=== PATIENT | male | born 1960 | race Caucasian/White ===

== ENCOUNTER 2017-09-09 08:01 | Inpatient (IN) | payer BC ==
[2017-09-07 14:32] VITALS: BMI 38.7
[2017-09-09] MEDS ORDERED: BUPIVACAINE HCL/PF 0.5% (5MG/ML) 10 ML VIAL ONE (10:41)
--- NOTE | 2017-09-09 10:44 | HP ---
Admitting History and Physical - Admission Chief Complaint: Morbid obesity History of Present Illness: 56 male presents for robotic vertical sleeve gastrectomy, possible liver biopsy , upper endoscopy History Source: Patient Limitations to Obtaining History: No Limitations - Past Medical History JACK WINDER: Yes: Syncope Cardiovascular: Yes: CAD, HTN, Hyperlipdemia, Other (Ventricular premature beats ) - Past Surgical History Past Surgical History: Yes: Tonsillectomy Additional Past Surgical History: Bilateral heel spurs - Smoking History Smoking history: Never smoked - Alcohol/Substance Use Hx Alcohol Use: Yes (SOCIALLY) Home Medications - Allergies Allergies/Adverse Reactions: Allergies Allergy/AdvReac Type Severity Reaction Status Date / Time Penicillins Allergy Severe Verified 09/07/17 14:34 - Home Medications Home Medications: Ambulatory Orders Atorvastatin Ca [Lipitor] 10 mg PO DAILY 09/07/17 Clonazepam 0.5 mg PO TID 09/07/17 Hydrocodone/Acetaminophen [Vicodin Es 7.5-300 mg Tablet] 1 tab PO QID 09/07/17 Meloxicam 15 mg PO DAILY 09/07/17 Methylprednisolone [Medrol Dose Jay] 1 tab PO 5XD 09/07/17 Mometasone Furoate 17 gm NS DAILY 09/07/17 Sertraline HCl [Zoloft] 200 mg PO DAILY 09/07/17 Trazodone HCl 350 mg PO HS 09/07/17 Cholecalciferol (Vitamin D3) [Vitamin D3] 5,000 unit PO DAILY 09/09/17 Chromium Picolinate 1,000 mcg PO DAILY 09/09/17 Cyclobenzaprine HCl [Flexeril 10 mg] 10 mg PO HS 09/09/17 Docusate Sodium [Colace -] 300 mg PO HS 09/09/17 Fexofenadine HCl [Wendy Allergy] 60 mg PO DAILY 09/09/17 Ginkgo Biloba 500 mg PO BID 09/09/17 Magnesium Oxide [Magnesium] 1,000 mg PO DAILY 09/09/17 Metoprolol Succinate 25 mg PO HS 09/09/17 Multivitamin,Ther and Minerals [Vitamin and Minerals] 1 each PO DAILY 09/09/17 Ubidecarenone [Co Q10] 400 mg PO DAILY 09/09/17 Family Disease History - Family Disease History Family History: Denies Review of Systems - Review of Systems Constitutional: denies: Chills, Fever HENT: reports: No Symptoms Neck: reports: No Symptoms Cardiovascular: denies: Chest Pain Respiratory: denies: Cough Gastrointestinal: denies: Abdominal Pain Neurological: denies: Change in LOC Pain Intensity: 0 Physical Examination Vital Signs: Vital Signs Temperature 98.6 F 09/09/17 08:40 Pulse Rate 86 09/09/17 08:40 Respiratory Rate 18 09/09/17 08:40 Blood Pressure 145/69 09/09/17 08:40 O2 Sat by Pulse Oximetry (%) 94 L 09/09/17 08:40 Constitutional: Yes: Calm HENT: Yes: WNL Neck: Yes: Supple Cardiovascular: Yes: WNL Respiratory: Yes: Regular Gastrointestinal: Yes: Soft, Abdomen, Obese. No: Tenderness Neurological: Yes: Alert, Oriented Problem List - Problems (1) Morbid obesity due to excess calories Code(s): E66.01 - MORBID (SEVERE) OBESITY DUE TO EXCESS CALORIES Assessment/Plan Robotic vertical sleeve gastrectomy, possible liver biopsy, upper endoscopy
[2017-09-09] MEDS ORDERED: MIDAZOLAM HCL 2 MG/2 ML SINGLE DOSE VIAL ONE (10:59)
[2017-09-09] MEDS ORDERED: SUCCINYLCHOLINE CHLORIDE 200 MG/10 ML VIAL ONE (11:26)
[2017-09-09] MEDS ORDERED: PROPOFOL 20 ML ONE ×2 (11:26→11:27)
[2017-09-09] MEDS ORDERED: fentaNYL CITRATE 250 MCG/5 ML VIAL ONE (11:27)
[2017-09-09] MEDS ORDERED: ROCURONIUM BROMIDE 50 MG/5 ML VIAL ONE (11:33)
[2017-09-09] MEDS ORDERED: CLINDAMYCIN PHOSPHATE 900 MG/6 ML VIAL IVPB ONE (11:52)
[2017-09-09] MEDS ORDERED: DEXAMETHASONE SOD PHOSPHATE 4 MG/1 ML VIAL ONE (13:29)
[2017-09-09] MEDS ORDERED: NEOSTIGMINE METHYLSULFATE 0.5 MG/ML - 10 ML MDV ONE (13:38)
[2017-09-09] MEDS ORDERED: GLYCOPYRROLATE 0.2 MG/1 ML VIAL ONE (13:39)
[2017-09-09] MEDS ORDERED: HYDROmorphone HCL CARPU-JECT 1 MG/1 ML DISP.SYRIN IVPB PRN (14:14)
[2017-09-09] MEDS ORDERED: ONDANSETRON 4 MG/2 ML VIAL IVPUSH SCH (14:15)
--- NOTE | 2017-09-09 14:17 | OP ---
Operative Note - Note: Operative Date: 09/09/17 Pre-Operative Diagnosis: Morbid obesity Operation: Robotic vertical sleeve gastrectomy, wedge liver biopsy, upper endoscopy Post-Operative Diagnosis: Other (Morbid obesity, hepatomegaly) Surgeon: Micheal Hodges Fire Inspector: Gino Stewart Anesthesia: General Specimens Removed: Greater curvature of stomach. Left lobe wedge liver biopsy Estimated Blood Loss (mls): 30 Drains & Tubes with Location: 36 Fr Bougie Operative Report Dictated: Yes
[2017-09-09] MEDS: METOCLOPRAMIDE HCL INJECTION 10 MG/2 ML VIAL IVPUSH SCH ×2 (14:25→20:18)
[2017-09-09] MEDS: ACETAMINOPHEN 1000 MG/100 ML VIAL (NON FORMULARY) IVPB SCH ×2 (14:30→20:18)
[2017-09-09] MEDS: HYDROmorphone HCL CARPU-JECT 2 MG/1 ML DISP.SYRIN IVPUSH PRN ×2 (14:30→14:40)
[2017-09-09] MEDS ORDERED: ONDANSETRON 4 MG/2 ML VIAL IVPUSH PRN (14:35)
[2017-09-09] MEDS ORDERED: oxyCODONE HCL 5 MG TABLET PO PRN (14:35)
[2017-09-09] MEDS ORDERED: PROMETHAZINE HCL 25 MG/1 ML VIAL IVPB PRN (14:35)
[2017-09-09] MEDS ORDERED: HYDROmorphone HCL CARPU-JECT 2 MG/1 ML DISP.SYRIN ONE (14:40)
[2017-09-09] MEDS ORDERED: LACTATED RINGERS SOLUTION 1,000 ML IV SCH (14:45)
--- NOTE | 2017-09-09 14:53 | SPEC ---
DATE OF OPERATION: 09/09/2017 PREOPERATIVE DIAGNOSES: 1. Morbid obesity. 2. Body mass index of 38.7. 3. Coronary artery disease. 4. Depression. 5. Hypercholesterolemia. POSTOPERATIVE DIAGNOSES: 1. Morbid obesity. 2. Body mass index of 38.7. 3. Coronary artery disease. 4. Depression. 5. Hypercholesterolemia. 6. Hepatomegaly. PROCEDURES PERFORMED: 1. Robotic vertical sleeve gastrectomy. 2. Robotic wedge liver biopsy. 3. Upper endoscopy. SURGEON: Shannon Hodges M.D. CATCHER HELPER: Gino Stewart M.D. SPECIMENS: 1. Greater curvature of the stomach. 2. Wedge liver biopsy of the left lobe of the liver. ESTIMATED BLOOD LOSS: 30 mL. DRAINS: None. ANESTHESIA: GET. BOUGIE: 36 Divehi. REASON FOR THE PROCEDURE: This 56-year-old gentleman presented to the office for weight loss options. After describing the different options, he decided to proceed with a robotic vertical sleeve gastrectomy, possible liver biopsy and upper endoscopy. RISKS AND BENEFITS: The patient was seen by the respective subspecialities and cleared for surgery. The risks and benefits of the procedure were explained. These included bleeding, infection, hernia, NE, DVT, PE, injury to surrounding structures including the liver, colon, bowel, spleen, esophagus, vessel injury, nerve injury, weight regain, gastric leak, staple line leak, sleeve leak, obstruction, vitamin deficiency, hair loss, and as some of the possible complications. The patient understood and signed informed consent. DESCRIPTION OF PROCEDURE: The patient was placed supine on the operating room table. The patient underwent general endotracheal intubation. A Bautista catheter was inserted by the nursing staff. The arms were brought out at 90 degrees and secured. A foot board was placed and the legs were secured laterally with padding. The abdomen was prepped and draped in the usual sterile fashion. A time-out was performed. An incision was made superior and to the left of the umbilicus. A Veress needle was inserted. Pneumoperitoneum was established. Subsequently the Veress needle was removed. An 8-mm robotic trocar was placed under direct visualization with the laparoscope. Inspection of the abdominal cavity was performed. An 8-mm trocar was then placed in the left abdominal wall approximately 6 to 7 cm to the left of the initial trocar. An 8-mm robotic trocar was then placed in the left abdominal wall approximately 6 to 7 cm to the left of the initial trocar. A 12-mm robotic trocar was then placed in the right abdominal wall approximately 6 to 7 cm to the right of the initial trocar and an 8-mm robotic trocar placed approximately 6 to 7 cm lateral to the 12-mm trocar. A stab wound was made in the subxiphoid area and a Becky clamp inserted and removed to dilate the tract. A Derrick liver retractor was inserted. The post was secured at the bedside by the nursing staff. The patient was placed in steep reverse Trendelenburg position and the Derrick liver retractor was used to secure the liver towards the anterior abdominal wall. The robot was brought over the field and docked. Dissection was performed at the console. The pylorus was identified and 6 cm proximal to it the lesser sac was entered using the vessel sealer. From this point cephalad all lateral attachments to the greater curvature of the stomach including the short gastric vessels were ligated using the vessel sealer towards the gastrosplenic and gastrophrenic ligaments. Once this was done in its entirety, all tubes within the nasal or oropharyngeal cavity including a temperature probe was confirmed to be removed by Anesthesia. The bougie was then inserted by Anesthesia. Transection of the stomach was then begun staying adjacent to the bougie, but away from the angularis. Transection of the stomach was performed near the portion of the stomach where the lesser sac was entered. Two robotic green hiram were used at this location. Robotic blue hiram were then used for the remainder of the transection until the greater curvature of the stomach was fully transected. Again this was done staying close to the bougie. Care was taken to stay away from the angle of His cephalad. The staple line was then inspected. Hemostasis was identified. A leak test was then performed. The stomach was clamped distally to the staple line. Irrigation solution was placed in the left upper quadrant and air insufflated by Anesthesia into the sleeve. No leaks were identified and no obstruction was identified. This was done throughout the staple line. At this point, the irrigation solution was suctioned and again hemostasis noted. A wedge liver biopsy was then performed. A portion of the left lobe of the liver was identified and an edge of it grasped. Using electrocautery a wedge of this portion of the liver was excised. The specimen was removed from the abdominal cavity and sent off the field. Hemostasis of the biopsy site as attained using electrocautery. The robotic instruments were then removed. The robot was undocked from the operative field. The 12-mm robotic trocar was removed and the greater curvature specimen removed from this site using a sponge stick hyde. The specimen was inspected and the Veress needle inserted. The specimen insufflated adequately and no leak was identified. The staple line was noted to be straight and intact. A Rolly-Marlene device was then used to close the fascia with a 0 Vicryl suture at this site. The liver retractor was removed under direct visualization. Pneumoperitoneum was desufflated and the fascial suture was secured. Hemostasis was noted at all incision sites and Marcaine was injected at all incision sites. All incision sites were closed using 4-0 Biosyn. Sterile dressings were applied. At the end of the case, an upper endoscopy was performed in order to further evaluate the staple line. The endoscope was inserted into the patient's esophagus. The GE junction, stomach, gastric pouch and entirety of the staple line were inspected. Hemostasis was noted, and no leak or obstruction was noted. The patient tolerated the procedure well and was transferred to the recovery room in stable condition with a Bautista catheter intact. The patient was transferred to telemetry for further monitoring. HSANNON HODGES M.D. [id number]
[2017-09-09] MEDS: SODIUM CHLORIDE 1,000 ML IV SCH ×2 (15:00→22:19)
[2017-09-09 15:11] LABS: HEMATOCRIT 45.4 % (35.4-49); HEMOGLOBIN 14.9 GM/dL (11.7-16.9); MCH 29.5 pg (25.7-33.7); MCHC 32.7 g/dl (32.0-35.9); MEAN CELL VOLUME 90.1 fl (80-96); MEAN PLT VOLUME 8.2 fl (7.5-11.1); PLATELET COUNT 166 K/MM3 (134-434); RBC 5.05 M/mm3 (4.00-5.60); RDW 14.2 % (11.9-15.9); WHITE BLOOD COUNT 10.1 K/mm3 (4.0-10.0)
[2017-09-09 15:28] LABS: ALK PHOS 79 U/L (45-117); ANION GAP 5 (8-16); BILIRUBIN,TOTAL 0.3 mg/dL (0.2-1.0); BLOOD UREA NITROGEN 20 mg/dL (7-18); CALCIUM 8.5 mg/dL (8.5-10.1); CHLORIDE 106 mmol/L (98-107); CO2 29 mmol/L (21-32); GLUCOSE,RANDOM 117 mg/dL (74-106); POTASSIUM 4.3 mmol/L (3.5-5.1); SGOT/AST 59 U/L (15-37); SGPT/ALT 77 U/L (12-78); SODIUM 140 mmol/L (136-145); TOT PROT 7.2 g/dl (6.4-8.2)
[2017-09-09] MEDS: HYDROmorphone HCL CARPU-JECT 2 MG/1 ML DISP.SYRIN IVPB PRN (17:41)
[2017-09-09] MEDS ORDERED: TRAZODONE HCL 350 MG PO SCH (22:00)
[2017-09-09] MEDS ORDERED: traZODone HCL 150 MG TABLET PO SCH (22:00)
[2017-09-09] MEDS ORDERED: traZODone HCL 50 MG TABLET (FP) PO SCH (22:00)
[2017-09-09] MEDS ORDERED: FAMOTIDINE 20 MG/50 ML IVPB 20 MG/50 ML MG IVPB SCH (22:00)
[2017-09-09] MEDS ORDERED: traZODone HCL 50 MG TABLET (FP) ONE (22:15)
[2017-09-09] MEDS: ENOXAPARIN NA (PORCINE) 40 MG/0.4 ML DISP.SYRIN SQ SCH (22:16)
[2017-09-09] MEDS: traZODone HCL 100 MG TABLET (FP) PO SCH ×2 (22:17→22:19)
[2017-09-09] MEDS: FAMOTIDINE IV 20 MG/12 ML VIAL IVPB SCH (22:38)
[2017-09-10] MEDS: METOCLOPRAMIDE HCL INJECTION 10 MG/2 ML VIAL IVPUSH SCH ×4 (01:45→20:47)
[2017-09-10] MEDS: ACETAMINOPHEN 1000 MG/100 ML VIAL (NON FORMULARY) IVPB SCH ×2 (01:49→08:46)
[2017-09-10] MEDS: HYDROmorphone HCL CARPU-JECT 2 MG/1 ML DISP.SYRIN IVPB PRN (07:19)
[2017-09-10 07:20] LABS: HEMATOCRIT 41.9 % (35.4-49); HEMOGLOBIN 13.6 GM/dL (11.7-16.9); MCH 29.5 pg (25.7-33.7); MCHC 32.5 g/dl (32.0-35.9); MEAN CELL VOLUME 90.6 fl (80-96); MEAN PLT VOLUME 8.2 fl (7.5-11.1); PLATELET COUNT 163 K/MM3 (134-434); RBC 4.62 M/mm3 (4.00-5.60); WHITE BLOOD COUNT 8.7 K/mm3 (4.0-10.0)
[2017-09-10 08:07] LABS: ALBUMIN 3.4 g/dl (3.4-5.0); ANION GAP 8 (8-16); BILIRUBIN,TOTAL 0.3 mg/dL (0.2-1.0); BLOOD UREA NITROGEN 13 mg/dL (7-18); CALCIUM 8.3 mg/dL (8.5-10.1); CHLORIDE 107 mmol/L (98-107); CO2 28 mmol/L (21-32); CREATININE 0.7 mg/dL (0.7-1.3); GLUCOSE,RANDOM 83 mg/dL (74-106); POTASSIUM 4.1 mmol/L (3.5-5.1); SGOT/AST 96 U/L (15-37); SGPT/ALT 116 U/L (12-78); SODIUM 143 mmol/L (136-145); TOT PROT 6.2 g/dl (6.4-8.2)
[2017-09-10 08:08] LABS: ALK PHOS 48 U/L (45-117)
[2017-09-10] MEDS: FAMOTIDINE IV 20 MG/12 ML VIAL IVPB SCH (10:26)
[2017-09-10] MEDS: ENOXAPARIN NA (PORCINE) 40 MG/0.4 ML DISP.SYRIN SQ SCH ×2 (10:29→21:18)
[2017-09-10] MEDS: METOPROLOL SUCCINATE 25 MG TAB.SR.24H (FP) PO SCH (10:30)
[2017-09-10] MEDS ORDERED: SODIUM CHLORIDE 1,000 ML IV SCH (11:15)
--- NOTE | 2017-09-10 12:25 | PN ---
Progress Note (short form) - Note Progress Note: POD 1 pain controlled No nausea Vital Signs Period Temp Pulse Resp BP Sys/Stout Pulse Ox Last 24 Hr 98. F-98.9 F 53-100 16-20 133-155/79-96 94-98 Abd soft CBC,CMP WBC 8.7 K/mm3 (4.0-10.0) 09/10/17 06:20 RBC 4.62 M/mm3 (4.00-5.60) 09/10/17 06:20 Hgb 13.6 GM/dL (11.7-16.9) 09/10/17 06:20 Hct 41.9 % (35.4-49) 09/10/17 06:20 MCV 90.6 fl (80-96) 09/10/17 06:20 MCH 29.5 pg (25.7-33.7) 09/10/17 06:20 MCHC 32.5 g/dl (32.0-35.9) 09/10/17 06:20 RDW 14.0 % (11.9-15.9) 09/10/17 06:20 Plt Count 163 K/MM3 (134-434) 09/10/17 06:20 MPV 8.2 fl (7.5-11.1) 09/10/17 06:20 Sodium 143 mmol/L (136-145) 09/10/17 06:20 Potassium 4.1 mmol/L (3.5-5.1) 09/10/17 06:20 Chloride 107 mmol/L (98-107) 09/10/17 06:20 Carbon Dioxide 28 mmol/L (21-32) 09/10/17 06:20 Anion Gap 8 (8-16) 09/10/17 06:20 BUN 13 mg/dL (7-18) D 09/10/17 06:20 Creatinine 0.7 mg/dL (0.7-1.3) D 09/10/17 06:20 Creat Clearance w eGFR > 60 (>60) 09/10/17 06:20 Random Glucose 83 mg/dL (74-106) D 09/10/17 06:20 Calcium 8.3 mg/dL (8.5-10.1) L 09/10/17 06:20 Total Bilirubin 0.3 mg/dL (0.2-1.0) 09/10/17 06:20 AST 96 U/L (15-37) H D 09/10/17 06:20 ALT 116 U/L (12-78) H D 09/10/17 06:20 Alkaline Phosphatase 48 U/L (45-117) D 09/10/17 06:20 Total Protein 6.2 g/dl (6.4-8.2) L 09/10/17 06:20 Albumin 3.4 g/dl (3.4-5.0) 09/10/17 06:20 UGI; no leak/obstruction Clears Home medicatoin Ambulate Problem List - Problems (1) Morbid obesity due to excess calories Code(s): E66.01 - MORBID (SEVERE) OBESITY DUE TO EXCESS CALORIES
[2017-09-10] MEDS ORDERED: FAMOTIDINE IV 20 MG/12 ML VIAL IVPUSH SCH (12:52)
[2017-09-10] MEDS: CHOLECALCIFEROL (VITAMIN D3) 1,000 UNIT TABLET (FP) PO SCH (13:40)
[2017-09-10] MEDS: SERTRALINE HCL 50 MG TABLET (FP) PO SCH (13:40)
[2017-09-10] MEDS: clonazePAM 0.5 MG TABLET PO SCH ×2 (13:40→21:17)
[2017-09-10] MEDS: oxyCODONE HCL 5 MG TABLET PO PRN (14:12)
[2017-09-10] MEDS: ACETAMINOPHEN 325 MG TABLET (FP) PO PRN (14:19)
[2017-09-10] MEDS: LORATADINE 10 MG TABLET PO SCH (18:30)
[2017-09-10] MEDS ORDERED: traZODone HCL 50 MG TABLET (FP) ONE (21:09)
[2017-09-10] MEDS: traZODone HCL 100 MG TABLET (FP) PO SCH (21:16)
[2017-09-10] MEDS: FLUTICASONE PROP 0.05% 16 GM NASAL SPRAY NS SCH (21:27)
[2017-09-10] MEDS ORDERED: CYCLOBENZAPRINE HCL 10 MG TABLET (FP) PO SCH (22:00)
[2017-09-10] MEDS ORDERED: DOCUSATE SODIUM 100 MG CAPSULE (FP) PO SCH (22:00)
[2017-09-10] MEDS ORDERED: ATORVASTATIN CA 10 MG TABLET (FP) PO SCH (22:00)
[2017-09-11] MEDS: METOCLOPRAMIDE HCL INJECTION 10 MG/2 ML VIAL IVPUSH SCH ×2 (01:26→08:29)
[2017-09-11] MEDS: clonazePAM 0.5 MG TABLET PO SCH (05:23)
[2017-09-11 06:20] VITALS: PULSE 92
[2017-09-11] MEDS: oxyCODONE HCL 5 MG TABLET PO PRN ×2 (08:39→13:16)
[2017-09-11] MEDS: ACETAMINOPHEN 325 MG TABLET (FP) PO PRN ×2 (08:39→13:16)
--- NOTE | 2017-09-11 12:40 | DS ---
Physical Examination Vital Signs: Vital Signs Temperature 99.0 F 09/11/17 06:00 Pulse Rate 92 H 09/11/17 06:00 Respiratory Rate 20 09/11/17 06:00 Blood Pressure 142/87 09/11/17 06:00 O2 Sat by Pulse Oximetry (%) 96 09/10/17 21:00 Labs: CBC, BMP 09/10/17 06:20 09/10/17 06:20 Discharge Summary Reason For Visit: MORBID (SEVERE) OBESITY DUE TO EXCESS CALORIES Current Active Problems BMI 38.0-38.9,adult (Acute) CAD (coronary artery disease) (Acute) Hepatomegaly (Acute) Morbid obesity due to excess calories (Acute) Condition: Stable - Instructions Diet, Activity, Other Instructions: [address] [place] [address] Micheal Hodges M.D. [address] [place] [address], [address] [facility] [address] [facility] [place] [address] Robotic, Bariatric and General Surgery Postoperative Instructions for Bariatric Surgery Activity: Resume normal everyday activity as tolerated. You may walk and climb stairs without any limitation. We encourage you to walk as often as you can Do not lift anything more than 10 pounds for 8 weeks. At that time, you can return to full activity, including the gym, without limitation. Do not drive a motor vehicle while taking prescribes narcotic pain medication. Wound Care: If you have a bandage in place, leave it on for 3 days. At that time you may remove the outer bandage. If there are strips of tape on the skin after removing the outer bandage, leave them in place. They will fall off by themselves. Do not remove them. If there is clear glue on the skin after removing the outer bandage, leave it in place. Do not pick at it or peel it off. You may shower after taking the outer bandage off, 3 days after your surgery. If incisions become red, warm or open, please call the office. Diet: Continue a sugar-free, non-carbonated Clear liquid diet three times a day for the first week-Stage I diet. In addition, you should drink 8 ounces of water every hour. When drinking, sips should be slow and steady, not large and quick. After the first week, call the office to be advanced to the next dietary stage. Do not advance stages until instructed. Your diet will be advanced over the phone each week. Medications/Pain Management: You may resume previous medications unless told otherwise. The pills may be swallowed whole or broken if scored. You may take the prescribed narcotic pain medication as needed. If the narcotic medication is not needed for pain control, you may take Tylenol. Avoid all other pain medications including Advil, Ibuprofen, Motrin, Aspirin, Naprosyn, Aleve, Celebrex. You will receive Pepcid. Please take this twice a day as prescribed. Dizziness,Headaches/Gas Pain: Make sure you are getting enough fluids daily. Patients on diuretics or water pills may need medication adjusted. Some fluids such as broth or Gatorade may help. Gas pains are common in the first few weeks after surgery. At times they can be worse than surgical pain. Walking can help. You can also use Mylanta, Maalox, or Gas-X. Vomiting/Nausea: This may occur if you eat too fast, don't chew, or eat too much. Go back to fluids. If the vomiting or nausea persists, call the office. Constipation/Diarrhea: You may experience a change in bowel habits. Many things affect this, including a decrease in food intake, not enough fluid and taking pain medication. Some people experience diarrhea after the barium swallow in x-ray. If either persist, call the office. Follow up: Call the office at [phone] for an appointment 2 weeks after your surgical procedure. Disposition: [facility]/HOME HEALTH CARE - Home Medications Comprehensive Discharge Medication List: Ambulatory Orders Atorvastatin Ca [Lipitor] 10 mg PO DAILY 09/07/17 Clonazepam 0.5 mg PO TID 09/07/17 Hydrocodone/Acetaminophen [Vicodin Es 7.5-300 mg Tablet] 1 tab PO QID 09/07/17 Meloxicam 15 mg PO DAILY 09/07/17 Methylprednisolone [Medrol Dose Jay] 1 tab PO 5XD 09/07/17 Mometasone Furoate 17 gm NS DAILY 09/07/17 Sertraline HCl [Zoloft] 200 mg PO DAILY 09/07/17 Trazodone HCl 350 mg PO HS 09/07/17 Cholecalciferol (Vitamin D3) [Vitamin D3] 5,000 unit PO DAILY 09/09/17 Chromium Picolinate 1,000 mcg PO DAILY 09/09/17 Cyclobenzaprine HCl [Flexeril 10 mg] 10 mg PO HS 09/09/17 Docusate Sodium [Colace -] 100 mg PO TID #90 capsule 09/09/17 Docusate Sodium [Colace -] 300 mg PO HS 09/09/17 Famotidine [Pepcid] 20 mg PO BID #60 tablet 09/09/17 Fexofenadine HCl [Wendy Allergy] 60 mg PO DAILY 09/09/17 Ginkgo Biloba 500 mg PO BID 09/09/17 Magnesium Oxide [Magnesium] 1,000 mg PO DAILY 09/09/17 Metoprolol Succinate 25 mg PO HS 09/09/17 Multivitamin,Ther and Minerals [Vitamin and Minerals] 1 each PO DAILY 09/09/17 Ubidecarenone [Co Q10] 400 mg PO DAILY 09/09/17
--- NOTE | 2017-09-11 12:44 | PN ---
Progress Note (short form) - Note Progress Note: POD 2 Doing well Tolerating clears Vital Signs Period Temp Pulse Resp BP Sys/Stout Pulse Ox Last 24 Hr 98.0 F-99.0 F 75-93 18-20 136-157/84-90 96-96 Abd soft PT ordered Cane ordered to help with ambulation- patient requesting cane Home with [facility] for assistance with ambulation Problem List - Problems (1) Morbid obesity due to excess calories Code(s): E66.01 - MORBID (SEVERE) OBESITY DUE TO EXCESS CALORIES
[2017-09-11] MEDS: CHOLECALCIFEROL (VITAMIN D3) 1,000 UNIT TABLET (FP) PO SCH (13:12)
[2017-09-11] MEDS: SERTRALINE HCL 50 MG TABLET (FP) PO SCH (13:13)
[2017-09-11] MEDS: FLUTICASONE PROP 0.05% 16 GM NASAL SPRAY NS SCH (13:13)
[2017-09-11] MEDS: METOPROLOL SUCCINATE 25 MG TAB.SR.24H (FP) PO SCH (13:13)
[2017-09-11] MEDS: ENOXAPARIN NA (PORCINE) 40 MG/0.4 ML DISP.SYRIN SQ SCH (13:56)
[2017-09-11] MEDS: LORATADINE 10 MG TABLET PO SCH (13:56)
[2017-09-11 14:15] VITALS: BP 146/77; TEMP 98.7
--- NOTE | 2017-09-15 12:58 | PATH ---
Surgical Pathology Report Patient Name: ISAIAH ABREU [facility]. Rec. #: [id number] /Age/Gender: 1960 (Age: 56) / M Account: [id number] Location: 4 W TELEMETRY U Taken: 09/09/2017 Received: 09/10/2017 Reported: 09/15/2017 Physicians: Micheal Hodges M.D. Specimen(s) Received A: GREATER CURVATURE STOMACH B: LIVER BIOPSY Clinical History Morbid obesity Final Diagnosis A. Stomach, greater Curvature, robotic vertical SLEEVE gastrectomy: Portion of stomach with MILD chronic gastritis. Immunohistochemical STAIN FOR H. Pylori is negative. B. LIVER, BIOPSY: LIVER PARENCHYMA WITH MINIMAL STEATOSIS (<1%). NO INCREASE IN FIBROSIS OR IRON ON PERFORMED SPECIAL STAINS (IRON AND TRICHROME). Electronically Signed Etelvina Horne M.D. Gross Description A. Received in formalin, labeled "greater curvature of stomach," is a 114 gram, 19.0 x 3.3 x 3.0 cm. portion of stomach with a stapled margin of resection. The serosa is johansen-rabago with minimal attached fat. The mucosa is johansen-pink with normal folds. No mucosal masses are identified. Nursing Faculty sections are submitted in one cassette. B. Received in formalin labeled "liver biopsy," is a 3.2 x 1.4 x 1.0 cm johansen-brown, irregular portion of liver tissue. The specimen is sectioned and entirely submitted in 2 cassettes. 09/10/201709/10/2017
== END 2017-09-11 01:50 | disposition home health service (06) | DRG 621 ==
LOC: JSAMEDAYSX 08:01 → EDSTATUS 11:00 → J4W 16:55
PROVIDERS: ADMIT Surgery; ATTEND Surgery
PROC: 0DB64Z3 Excision of Stomach, Percutaneous Endoscopic Approach, Vertical (ICD-10-PCS; principal; 2017-09-09 10:00)
PROC: 0FB24ZX Excision of Left Lobe Liver, Percutaneous Endoscopic Approach, Diagnostic (ICD-10-PCS; 2017-09-09 10:00)
PROC: 8E0W8CZ Robotic Assisted Procedure of Trunk Region, Via Natural or Artificial Opening Endoscopic (ICD-10-PCS; 2017-09-09 10:00)
DX: E66.01 Morbid (severe) obesity due to excess calories (principal); Z68.38 Body mass index [BMI] 38.0-38.9, adult; I25.10 Atherosclerotic heart disease of native coronary artery without angina pectoris; F32.9 Major depressive disorder, single episode, unspecified; E78.5 Hyperlipidemia, unspecified; R16.0 Hepatomegaly, not elsewhere classified; I10 Essential (primary) hypertension; K29.50 Unspecified chronic gastritis without bleeding; K76.0 Fatty (change of) liver, not elsewhere classified
CPT/HCPCS: 36415; 74241-TC; 80053; 85027; 86850; 86900; 86901; 88307-TC; 94010; 94760; 97161-GP

== ENCOUNTER 2018-05-18 10:54 | Inpatient (IN) | payer BC ==
[2018-04-28 13:16] VITALS: BMI 29.0
[~2018-05-18 10:54] MED LIST: CEFAZOLIN 2 GM in DEXTROSE 5%-WATER - 50 ML IVPB ONE; MOMETASONE FUROATE NS SCH; PATIENT'S OWN MEDICATION (NON-FORMULARY) (Hydrocodone/Acetaminophen [Vicodin Es 7.5-300 Mg PO PRN; PATIENT'S OWN MEDICATION (NON-FORMULARY) (Sertraline Hcl [Zoloft] 200 MG) PO SCH; TRANEXAMIC ACID 1000 MG/10 ML VIAL IVPUSH ONE; VANCOMYCIN 1,000 MG in DEXTROSE 5%-WATER - 250 ML IVPB ONE
[2018-05-18] MEDS ORDERED: CELECOXIB 200 MG CAPSULE ONE (11:17)
[2018-05-18] MEDS ORDERED: oxyCODONE HCL 10 MG SUSTAINED ACTING TABLET ONE (11:17)
[2018-05-18] MEDS: CELECOXIB 200 MG CAPSULE PO ONE (13:14)
[2018-05-18] MEDS: oxyCODONE HCL 10 MG SUSTAINED ACTING TABLET PO ONE (13:14)
[2018-05-18] MEDS ORDERED: BENZOIN/ALOE VERA/STORAX/TOLU 58 ML BOTTLE ONE (14:42)
[2018-05-18] MEDS ORDERED: SODIUM CHLORIDE 0.9% P/F 10 ML VIAL IJ ONE (14:43)
[2018-05-18] MEDS ORDERED: BUPIVACAINE LIPOSOME/PF (EXPAREL) 266 MG/20 ML VIAL ONE (14:43)
[2018-05-18] MEDS ORDERED: MIDAZOLAM HCL 2 MG/2 ML SINGLE DOSE VIAL ONE ×3 (14:43→18:07)
[2018-05-18] MEDS ORDERED: BUPIVACAINE HCL/PF (5 MG/ML) 30 ML VIAL IJ ONE (14:43)
[2018-05-18] MEDS ORDERED: TRANEXAMIC ACID 1000 MG/10 ML VIAL ONE ×2 (17:08→18:29)
[2018-05-18] MEDS ORDERED: CLINDAMYCIN PHOSPHATE 600 MG/4 ML VIAL ONE (17:08)
[2018-05-18] MEDS ORDERED: oxyCODONE HCL 5 MG TABLET PO PRN (19:00)
[2018-05-18] MEDS ORDERED: ONDANSETRON 4 MG/2 ML VIAL IVPUSH PRN ×2 (19:04→20:03)
[2018-05-18] MEDS ORDERED: MAG HYDROX/AL HYDROX/SIMETH 30 ML UNIT-DOSE CUP PO PRN (19:04)
[2018-05-18] MEDS ORDERED: MAGNESIUM HYDROX 2400MG/30ML ORAL SUSPENSION 30 ML CUP PO PRN (19:04)
[2018-05-18] MEDS ORDERED: LACTATED RINGERS SOLUTION 1,000 ML IV SCH ×2 (19:15→20:15)
--- NOTE | 2018-05-18 19:25 | PN ---
Progress Note (short form) - Note Progress Note: S/P L TKA R TKA POD #0 - Pain control. -DVT PPx: -Chemical: ASA 81 mg po BID x 6 weeks -Mechanical: MICHAEL's, SCD's -Incentive Spirometry. -PT/OT/Rehab, OOB. -WBAT RLE. -f/u drain output -f/u am labs. -Care per medical hospitalist team. -Discharge planning: f/u [facility] [place] office video production specialist for appointment: -Will follow. Akhil Robles MD (Orthopaedic Surgery)
--- NOTE | 2018-05-18 19:34 | OP ---
Operative Note - Note: Operative Date: 05/18/18 Pre-Operative Diagnosis: Right knee OA Operation: right total knee arthroplasty Implants: [employer] PS 6 tibia, 9 poly insert, 5 femur, 27 patella Post-Operative Diagnosis: Same as Pre-op Surgeon: Akhil Robles Fagoting Machine Operator: Feliz Robles Anesthesiologist/SOLE BUFFER: Irma Wong Anesthesia: Spinal Specimens Removed: bone and soft tissue Estimated Blood Loss (mls): 150 Drains & Tubes with Location: deep Hemovac Drain x1 Fluid Volume Replaced (mls): 1,800 Operative Report Dictated: Yes
[2018-05-18] MEDS: ACETAMINOPHEN 325 MG TABLET (FP) PO SCH (20:25)
[2018-05-18] MEDS: ASPIRIN 81 MG CHEWABLE TABLETS PO SCH ×2 (20:30→21:22)
[2018-05-18] MEDS: oxyCODONE HCL 5 MG TABLET PO PRN ×2 (20:30→23:00)
--- NOTE | 2018-05-18 21:17 | OP ---
DATE OF OPERATION: 05/18/2018 SURGEON: Akhil Robles MD GEOSPATIAL INFORMATION SCIENTIST: Feliz Robles MD; TERESE Frausto PREOPERATIVE DIAGNOSES: Fixed valgus, fixed flexed valgus tricompartment osteoarthritis of knee. POSTOPERATIVE DIAGNOSIS: Fixed valgus, fixed flexed valgus tricompartment osteoarthritis of knee. OPERATION PERFORMED: Right cemented posterior stabilized knee (Yung Triathlon). ANESTHESIA: Spinal epidural with conscious sedation. ANTIBIOTICS GIVEN: Vancomycin 1 g, clindamycin 900 mg. OPERATION DETAILS: Patient correctly identified, brought to operating room. The right lower extremity was prepped and free draped in the routine manner with Betadine scrub solution, wiped off with alcohol, DuraPrep applied. Imaging was available for intraoperative evaluation. Timeout was called. A midline incision was utilized. We attempted a sub-vastus approach but because of the tightness of the quadriceps mechanism, it was elected to go ahead with the standard quadriceps splitting procedure. The tendon was split longitudinally, coursing around the medial parapatellar margin to the medial aspect of the tibia. The patella was capsized laterally. The patella was cut along Palo's line, from patellar ligament to quadriceps tendon. The tibia was cut in neutral, that is, 90 degrees to the tibial shaft. The femur was sized and measured. The tibia measurement was to a size 6 baseplate and the femur was measured as a size 5 Triathlon, for a Triathlon posterior stabilized implant. The appropriate [place] jigs were placed on the bone bed. All bone cuts were made. The deficiency of the lateral femoral condyle was readily noted and accommodation to this was achieved by ensuring that the correct jig position enabled the appropriate loss of excessive valgus. Once all jig cuts were made and the bone bed was thoroughly lavaged, cementing was in one stage, all 3 components being cemented. Extraneous cement was removed. A 9-mm polyethylene liner for a size 6 baseplate utilized, and a 27-mm patellar button utilized. Once the implants were seated, the tissues were thoroughly lavaged. Closure: Quadriceps tendon and parapatellar tendon with 1 Vicryl subcutaneous, 1 and 2-0 Vicryl; skin: 3-0 Monocryl with Steri-Strips. The tracking of the patella was excellent, tiliting requiring a very small lateral release distally. No complications. The patient will be nursed in accordance with the routine total knee protocol with DVT prophylaxis and perioperative antibiotics and appropriate physical therapy and nursing. MD EULALIA [id number] MTDD
[2018-05-18] MEDS: ATORVASTATIN CA 10 MG TABLET (FP) PO SCH (21:21)
[2018-05-18] MEDS: ASCORBIC ACID 500 MG TABLET (FP) PO SCH (21:21)
[2018-05-18] MEDS: GABAPENTIN 300 MG CAPSULE (FP) PO SCH (21:21)
[2018-05-18] MEDS: SENNOSIDES/DOCUSATE COMBO (SENNA PLUS) TABLET (UD) PO SCH (21:21)
[2018-05-18] MEDS: oxyCODONE HCL 10 MG SUSTAINED ACTING TABLET PO SCH (21:21)
[2018-05-18] MEDS: traZODone HCL 50 MG TABLET (FP) PO SCH (21:21)
[2018-05-18] MEDS: CYCLOBENZAPRINE HCL 10 MG TABLET (FP) PO SCH (21:23)
[2018-05-18] MEDS ORDERED: Linaclotide [Linzess] 145 MCG) PO SCH (22:00)
[2018-05-19] MEDS: ACETAMINOPHEN 325 MG TABLET (FP) PO SCH ×3 (00:07→08:21)
[2018-05-19] MEDS: oxyCODONE HCL 5 MG TABLET PO PRN ×4 (03:10→18:03)
[2018-05-19] MEDS: VANCOMYCIN 1,000 MG in DEXTROSE 5%-WATER - 250 ML IVPB SCH ×2 (05:17→16:39)
--- NOTE | 2018-05-19 07:23 | PN ---
Progress Note (short form) - Note Progress Note: POD #1 Alert. Sitting in chair at bedside. Doing well. No acute events since surgery per RN notes. Pt c/o a lot of knee pain about 7/10 despite ordered prn meds. He has gotten OOB and ambulated to bathroom only. Denies n/v/f/c, CP, SOB, palpitations, weak or dizzy. Last Vital Signs Temp Pulse Resp BP Pulse Ox 97.3 F L 96 H 18 131/76 98 05/19/18 06:35 05/19/18 06:35 /02/28 06:35 05/19/18 06:35 05/19/18 06:35 Gen: a&o. nad Pulm: cta bilat anteriorly Cor: rrr RLE: dressing c/d/i. Hemovac with 15 mL (sanguinous). ANTONIO wrap from toes to mid thigh in place. Patient not willing to actively flex/extend knee 2/2 pain. +DP/ PT Problem List - Problems (1) Osteoarthritis of right knee Assessment/Plan: 57 yo male POD #1 s/p right knee arthroplasty Pain control DVT ppx via ASA 81 mg PO BID x 6 weeks TEDs/SCDs bilat Will add 1gm Ofirmev Q 6H PRN Pain control as ordered Incentive spirometer PT/OT/Rehab OOB with assistance RLE WBAT f/u LABS Cont care as per Medical Hospitalist Team DC planning: f/u [facility] [place] [facility] --> call for an appointment Will cont to follow until dc'd Above plan discussed with Dr. Feliz Robles and agrees Code(s): M17.11 - UNILATERAL PRIMARY OSTEOARTHRITIS, RIGHT KNEE
--- NOTE | 2018-05-19 07:39 | CONSULT ---
Consultation: REQUESTING PROVIDER: Dr Robles CONSULT REQUEST: We have been asked to medically evaluate this patient for medical management. HISTORY OF PRESENT ILLNESS: Patient is a 57-year-old male, With a past medical history of hypertension, hyperlipidemia, depression, anxiety, sleep apnea (oral airway device), and osteoarthritis. Patient is S/P sleeve gastrectomy (2016) patient was admitted to the medical surgical floor after an elective right total knee replacement with spinal anesthesia, 05/18/2018, Dr Robles, spinal anesthesia. REVIEW OF SYSTEMS: CONSTITUTIONAL: Absent: fever, chills, diaphoresis, generalized weakness, malaise, loss of appetite, weight change HEENT: Absent: rhinorrhea, nasal congestion, throat pain, throat swelling, difficulty swallowing, mouth swelling, ear pain, eye pain, visual changes CARDIOVASCULAR: Absent: chest pain, syncope, palpitations, irregular heart rate, lightheadedness , peripheral edema RESPIRATORY: Absent: cough, shortness of breath, dyspnea with exertion, orthopnea, wheezing, stridor, hemoptysis GASTROINTESTINAL: Absent: abdominal pain, abdominal distension, nausea, vomiting, diarrhea, constipation, melena, hematochezia GENITOURINARY: Absent: dysuria, frequency, urgency, hesitancy, hematuria, flank pain, genital pain MUSCULOSKELETAL: Present: right knee pain Absent: myalgia, arthralgia, joint swelling, back pain, neck pain SKIN: Absent: rash, itching, pallor HEMATOLOGIC/IMMUNOLOGIC: Absent: easy bleeding, easy bruising, lymphadenopathy, frequent infections ENDOCRINE: Absent: unexplained weight gain, unexplained weight loss, heat intolerance, cold intolerance NEUROLOGIC: Absent: headache, focal weakness or paresthesias, dizziness, unsteady gait, seizure, mental status changes, bladder or bowel incontinence PSYCHIATRIC: Absent: anxiety, depression, suicidal or homicidal ideation, hallucinations. PHYSICAL EXAMINATION Vital Signs - 24 hr 05/18/18 05/18/18 05/18/18 11:44 11:47 19:05 Temperature 98.1 F 98.4 F Pulse Rate 91 H 76 Respiratory 18 19 Rate Blood Pressure 113/83 143/69 O2 Sat by Pulse 99 Oximetry (%) 05/18/18 05/18/18 05/18/18 19:57 20:02 20:07 Temperature 97.6 F Pulse Rate 65 71 73 Respiratory 16 16 15 Rate Blood Pressure 130/88 136/81 127/87 O2 Sat by Pulse 100 100 100 Oximetry (%) 05/18/18 05/18/18 05/18/18 20:12 20:27 20:50 Temperature 97.6 F Pulse Rate 56 L 66 66 Respiratory 14 14 14 Rate Blood Pressure 138/79 131/75 131/75 O2 Sat by Pulse 100 100 Oximetry (%) 05/18/18 05/18/18 05/19/18 21:00 22:17 03:05 Temperature Pulse Rate Respiratory 14 14 Rate Blood Pressure O2 Sat by Pulse 98 98 Oximetry (%) 05/19/18 06:35 Temperature 97.3 F L Pulse Rate 96 H Respiratory 18 Rate Blood Pressure 131/76 O2 Sat by Pulse 98 Oximetry (%) GENERAL: Awake, alert, and fully oriented, in no acute distress. HEAD: Normal with no signs of trauma. EYES: Pupils equal, round and reactive to light, extraocular movements intact, sclera anicteric, conjunctiva clear. No lid lag. EARS, NOSE, THROAT: Ears normal, nares patent, oropharynx clear without exudates. Moist mucous membranes. NECK: Normal range of motion, supple without lymphadenopathy, JVD, or masses. LUNGS: Breath sounds equal, clear to auscultation bilaterally. No wheezes, and no crackles. No accessory muscle use. HEART: Regular rate and rhythm, normal S1 and S2 without murmur, rub or gallop. ABDOMEN: Soft, nontender, not distended, normoactive bowel sounds, no guarding, no rebound, no masses. No hepatomegaly or splenomegaly. MUSCULOSKELETAL: Normal range of motion at all joints. No bony deformities or tenderness. No CVA tenderness. UPPER EXTREMITIES: 2+ pulses, warm, well-perfused. No cyanosis. No clubbing. Cap refill <2 seconds. No peripheral edema. LOWER EXTREMITIES: 2+ pulses, warm, well-perfused. No calf tenderness. No peripheral edema. RIGHT LOWER EXTREMITY: scd/thalia, Hemovac drain intact, dressing CDI less than 2 second capillary refill +3 pedal pulse NEUROLOGICAL: Cranial nerves II-XII intact. Normal speech. Normal gait. PSYCHIATRIC: Cooperative. Good eye contact. Appropriate mood and affect. SKIN: Warm, dry, normal turgor, no rashes or lesions noted. Active Medications Generic Name Dose Route Start Last Admin Trade Name Freq PRN Reason Stop Dose Admin Acetaminophen 650 mg 05/18/18 19:00 05/19/18 06:20 Tylenol - PO 05/21/18 18:59 650 mg Q6H MADHAVI Administration Al Hydroxide/Mg Hydroxide 30 ml 05/18/18 19:04 Mylanta Oral Suspension - PO Q4H PRN DYSPEPSIA Ascorbic Acid 500 mg 05/18/18 22:00 05/18/18 21:21 Vitamin C - PO 500 mg BID MADHAVI Administration Aspirin 81 mg 05/18/18 22:00 05/18/18 21:22 Asa - PO Not Given BID MADHAVI Atorvastatin Calcium 10 mg 05/18/18 22:00 05/18/18 21:21 Lipitor - PO 10 mg HS MADHAVI Administration Clonazepam 0.5 mg 05/18/18 19:20 Klonopin - PO DAILY PRN ANXIETY Cyclobenzaprine HCl 10 mg 05/18/18 22:00 05/18/18 21:23 Flexeril - PO 10 mg HS MADHAVI Administration Ferrous Sulfate 325 mg 05/19/18 08:00 Feosol - PO BIDWM MADHAVI Gabapentin 300 mg 05/18/18 22:00 05/18/18 21:21 Neurontin - PO 05/21/18 21:59 300 mg BID MADHAVI Administration Vancomycin HCl 1,000 mg/ 250 mls @ 250 mls/hr 05/19/18 05:00 05/19/18 05:17 Dextrose IVPB 05/19/18 17:59 250 mls/hr Q12H MADHAVI Administration Lactated Ringer's 1,000 mls @ 125 mls/hr 05/18/18 20:15 05/18/18 21:47 Lactated Ringers Solution IV 125 mls/hr ASDIR MADHAVI Administration Loratadine 10 mg 05/19/18 10:00 Claritin - PO DAILY MADHAVI Magnesium Hydroxide 30 ml 05/18/18 19:04 Milk Of Magnesia - PO PRN PRN CONSTIPATION Metoprolol Succinate 25 mg 05/18/18 10:00 Toprol Xl - PO DAILY [facility] Multivitamins/Minerals/Vitamin C 1 tab 05/19/18 10:00 Tab-A-Vit - PO DAILY [facility] Non-Formulary Medication 2 tab 05/18/18 00:43 Hydrocodone/Acetaminophen [Vicodin Es 7.5-300 Mg Tablet] PO TID PRN KNEE AND BACK PAIN Non-Formulary Medication 145 mcg 05/18/18 22:00 Linaclotide [Linzess] PO HS MADHAVI Non-Formulary Medication 34 gm 05/18/18 10:00 Mometasone Furoate [Mometasone Furoate] NS DAILY MADHAVI Ondansetron HCl 4 mg 05/18/18 19:04 Zofran Injection IVPUSH Q6H PRN NAUSEA Ondansetron HCl 4 mg 05/18/18 20:03 Zofran Injection IVPUSH Q6H PRN NAUSEA AND/OR VOMITING Oxycodone HCl 5 mg 05/18/18 19:00 05/19/18 00:09 Roxicodone - PO 5 mg Q3H PRN Administration PAIN LEVEL 1-5 Oxycodone HCl 10 mg 05/18/18 19:00 05/19/18 06:19 Roxicodone - PO 10 mg Q3H PRN Administration PAIN LEVEL 6-10 Oxycodone HCl 10 mg 05/18/18 22:00 05/18/18 21:21 Oxycontin - PO 05/21/18 19:01 10 mg BID MADHAVI Administration Pantoprazole Sodium 40 mg 05/19/18 10:00 Protonix - PO DAILY MADHAVI Senna/Docusate Sodium 1 tablet 05/18/18 22:00 05/18/18 21:21 Pericolace - PO 1 tablet BID MADHAVI Administration Sertraline HCl 200 mg 05/19/18 10:00 Zoloft - PO DAILY MADHAVI Trazodone HCl 300 mg 05/18/18 22:00 05/18/18 21:21 Desyrel - PO 300 mg HS MADHAVI Administration ASSESSMENT/PLAN: 1) MS s/p total knee replacement, POD #1 - monitor hgb, continue iron supplements, since patient is post bariatric surgery. - continue when necessary pain medication, patient reports ongoing pain despite when necessary pain medication will start Celebrex 200 mg daily Toradol 30 mg IV 1 ordered in addition to offirmev - strict Monitoring of drain output. 2) Cardiovascular Hypertension - Continue Toprol, blood pressure at goal - Echo reviewed from cardiology notes completed 2016 LV WNL, trace MR and TR - lexiscan 2017 Ischemia 3) psych anxiety/depression - continue zoloft and trazadone, home dose f/e/n - low sodium diet - replete electrolytes ppx - protonix - asa - physical therapy - mechanical AC Dispo: We will continue to follow the patient. Thank you for this consultative opportunity. Visit type - Emergency Visit Emergency Visit: No - New Patient This patient is new to me today: Yes Date on this admission: 05/19/18 - Critical Care Critical Care patient: No
[2018-05-19] MEDS ORDERED: ACETAMINOPHEN 1000 MG/100 ML VIAL (NON FORMULARY) IVPB PRN (07:54)
[2018-05-19] MEDS: oxyCODONE HCL 10 MG SUSTAINED ACTING TABLET PO ONE (08:20)
[2018-05-19] MEDS: CELECOXIB 200 MG CAPSULE PO ONE (08:20)
[2018-05-19] MEDS: metoPROLOL SUCCINATE 25 MG TAB.SR.24H (FP) PO SCH ×2 (08:21→10:55)
[2018-05-19 08:22] LABS: ANION GAP 6 MMOL/L (8-16); BLOOD UREA NITROGEN 18 mg/dl (7-18); CALCIUM 8.8 mg/dl (8.4-10.2); CHLORIDE 102 mmol/L (98-107); CO2 26 mmol/L (22-28); CREATININE 0.7 mg/dl (0.6-1.3); GLUCOSE,RANDOM 157 mg/dl (74-106); POTASSIUM 4.4 mmol/L (3.5-5.1); SODIUM 134 mmol/L (136-145)
[2018-05-19 08:26] LABS: HEMATOCRIT 41.4 % (35.4-49); HEMOGLOBIN 13.6 GM/dl (11.7-16.9); MCH 29.7 pg (25.7-33.7); MEAN CELL VOLUME 90.1 fl (80-96); MEAN PLT VOLUME 8.4 fl (7.5-11.1); PLATELET COUNT 175 K/MM3 (134-434); RBC 4.59 M/mm3 (4.00-5.60); RDW 13.8 % (11.9-15.9); WHITE BLOOD COUNT 8.9 K/mm3 (4.0-10.8)
[2018-05-19] MEDS ORDERED: KETOROLAC TROMETHAMINE 30 MG/1 ML VIAL IVPUSH ONE (08:30)
[2018-05-19] MEDS: FERROUS SO4 325 MG TABLET (FP) PO SCH ×2 (08:47→16:39)
--- NOTE | 2018-05-19 09:00 | PN ---
Progress Note, Physician Chief Complaint: day 1 s/p right knee arthroplasty - Current Medication List Current Medications: Active Medications Acetaminophen (Ofirmev Injection -) 1,000 mg IVPB Q6H PRN PRN Reason: PAIN Al Hydroxide/Mg Hydroxide (Mylanta Oral Suspension -) 30 ml PO Q4H PRN PRN Reason: DYSPEPSIA Ascorbic Acid (Vitamin C -) 500 mg PO BID COUNTS INCLUDE 234 BEDS AT THE [facility] Last Admin: 05/18/18 21:21 Dose: 500 mg Aspirin (Asa -) 81 mg PO BID COUNTS INCLUDE 234 BEDS AT THE [facility] Last Admin: 05/18/18 21:22 Dose: Not Given Atorvastatin Calcium (Lipitor -) 10 mg PO HS COUNTS INCLUDE 234 BEDS AT THE [facility] Last Admin: 05/18/18 21:21 Dose: 10 mg Celecoxib (Celebrex -) 200 mg PO DAILY COUNTS INCLUDE 234 BEDS AT THE [facility] Clonazepam (Klonopin -) 0.5 mg PO DAILY PRN PRN Reason: ANXIETY Cyclobenzaprine HCl (Flexeril -) 10 mg PO HS COUNTS INCLUDE 234 BEDS AT THE [facility] Last Admin: 05/18/18 21:23 Dose: 10 mg Ferrous Sulfate ([facility] -) [facility] Last Admin: 05/19/18 08:47 Dose: Not Given Gabapentin (Neurontin -) 300 mg PO BID COUNTS INCLUDE 234 BEDS AT THE [facility] Stop: 05/21/18 21:59 Last Admin: 05/18/18 21:21 Dose: 300 mg Vancomycin HCl 1,000 mg/ (Dextrose) 250 mls @ 250 mls/hr IVPB Q12H COUNTS INCLUDE 234 BEDS AT THE [facility] Stop: 05/19/18 17:59 Last Admin: 05/19/18 05:17 Dose: 250 mls/hr Lactated Ringer's (Lactated Ringers Solution) 1,000 mls @ 125 mls/hr IV ASDIR COUNTS INCLUDE 234 BEDS AT THE [facility] Last Admin: 05/18/18 21:47 Dose: 125 mls/hr Loratadine (Claritin -) 10 mg PO DAILY COUNTS INCLUDE 234 BEDS AT THE [facility] Magnesium Hydroxide (Milk Of Magnesia -) 30 ml PO PRN PRN PRN Reason: CONSTIPATION Metoprolol Succinate (Toprol Xl -) 25 mg PO DAILY COUNTS INCLUDE 234 BEDS AT THE [facility] Last Admin: 05/19/18 08:21 Dose: Not Given Multivitamins/Minerals/Vitamin C (Tab-A-Vit -) 1 tab PO DAILY COUNTS INCLUDE 234 BEDS AT THE [facility] Non-Formulary Medication (Hydrocodone/Acetaminophen [Vicodin Es 7.5-300 Mg Tablet]) 2 tab PO TID PRN PRN Reason: KNEE AND BACK PAIN Non-Formulary Medication (Linaclotide [Linzess]) 145 mcg PO HS COUNTS INCLUDE 234 BEDS AT THE [facility] Non-Formulary Medication (Mometasone Furoate [Mometasone Furoate]) 34 gm NS DAILY COUNTS INCLUDE 234 BEDS AT THE [facility] Ondansetron HCl (Zofran Injection) 4 mg IVPUSH Q6H PRN PRN Reason: NAUSEA Ondansetron HCl (Zofran Injection) 4 mg IVPUSH Q6H PRN PRN Reason: NAUSEA AND/OR VOMITING Oxycodone HCl (Roxicodone -) 5 mg PO Q3H PRN PRN Reason: PAIN LEVEL 1-5 Last Admin: 05/19/18 00:09 Dose: 5 mg Oxycodone HCl (Roxicodone -) 10 mg PO Q3H PRN PRN Reason: PAIN LEVEL 6-10 Last Admin: 05/19/18 06:19 Dose: 10 mg Oxycodone HCl (Oxycontin -) 10 mg PO BID COUNTS INCLUDE 234 BEDS AT THE [facility] Stop: 05/21/18 19:01 Last Admin: 05/18/18 21:21 Dose: 10 mg Pantoprazole Sodium (Protonix -) 40 mg PO DAILY COUNTS INCLUDE 234 BEDS AT THE [facility] Senna/Docusate Sodium (Pericolace -) 1 tablet PO BID COUNTS INCLUDE 234 BEDS AT THE [facility] Last Admin: 05/18/18 21:21 Dose: 1 tablet Sertraline HCl (Zoloft -) 200 mg PO DAILY COUNTS INCLUDE 234 BEDS AT THE [facility] Trazodone HCl (Desyrel -) 300 mg PO HS COUNTS INCLUDE 234 BEDS AT THE [facility] Last Admin: 05/18/18 21:21 Dose: 300 mg - Objective Vital Signs: Vital Signs Temperature 97.3 F L 05/19/18 06:35 Pulse Rate 96 H 05/19/18 06:35 Respiratory Rate 18 05/19/18 06:35 Blood Pressure 131/76 05/19/18 06:35 O2 Sat by Pulse Oximetry (%) 98 05/19/18 06:35 Labs: CBC, BMP 05/19/18 07:15 05/19/18 07:15 Assessment/Plan Pt has had pain last night- one dose of ketorolac was given, and ofirmev was ordered (not given yet) as well. sitting in chair comfortably, but had pain when moving to chair
[2018-05-19] MEDS: CELECOXIB 200 MG CAPSULE PO SCH (10:56)
[2018-05-19] MEDS: ASCORBIC ACID 500 MG TABLET (FP) PO SCH ×2 (10:56→21:43)
[2018-05-19] MEDS: SENNOSIDES/DOCUSATE COMBO (SENNA PLUS) TABLET (UD) PO SCH ×2 (10:56→21:42)
[2018-05-19] MEDS: GABAPENTIN 300 MG CAPSULE (FP) PO SCH ×2 (10:56→21:42)
[2018-05-19] MEDS: MULTIVITAMINS (DAILY MVI) TABLET (FP) PO SCH (10:56)
[2018-05-19] MEDS: PANTOPRAZOLE 40 MG TABLET (FP) PO SCH (10:56)
[2018-05-19] MEDS: SERTRALINE HCL 50 MG TABLET (FP) PO SCH (10:56)
[2018-05-19] MEDS: ASPIRIN 81 MG CHEWABLE TABLETS PO SCH ×2 (10:56→21:42)
[2018-05-19] MEDS: LORATADINE 10 MG TABLET PO SCH (10:56)
[2018-05-19] MEDS: oxyCODONE HCL 10 MG SUSTAINED ACTING TABLET PO SCH ×2 (10:57→21:42)
[2018-05-19] MEDS: clonazePAM 0.5 MG TABLET PO PRN (14:02)
[2018-05-19] MEDS ORDERED: PT OWN MED DRAWER 7, Y5N ONE (16:34)
[2018-05-19] MEDS: traZODone HCL 50 MG TABLET (FP) PO SCH (21:43)
[2018-05-19] MEDS: ATORVASTATIN CA 10 MG TABLET (FP) PO SCH (21:43)
[2018-05-19] MEDS: CYCLOBENZAPRINE HCL 10 MG TABLET (FP) PO SCH (21:43)
[2018-05-19] MEDS ORDERED: clonazePAM 0.5 MG TABLET PO ONE (22:15)
[2018-05-20] MEDS: oxyCODONE HCL 5 MG TABLET PO PRN (06:09)
[2018-05-20 06:51] VITALS: BP 129/75; PULSE 107; TEMP 99.2
[2018-05-20 08:23] LABS: HEMATOCRIT 37.6 % (35.4-49); HEMOGLOBIN 12.6 GM/dl (11.7-16.9); MCH 30.4 pg (25.7-33.7); MCHC 33.7 g/dl (32.0-35.9); MEAN CELL VOLUME 90.2 fl (80-96); MEAN PLT VOLUME 8.5 fl (7.5-11.1); PLATELET COUNT 164 K/MM3 (134-434); RBC 4.17 M/mm3 (4.00-5.60); WHITE BLOOD COUNT 8.6 K/mm3 (4.0-10.8)
[2018-05-20] MEDS: FERROUS SO4 325 MG TABLET (FP) PO SCH ×2 (08:30→08:32)
[2018-05-20] MEDS: ASCORBIC ACID 500 MG TABLET (FP) PO SCH (09:39)
[2018-05-20] MEDS: MULTIVITAMINS (DAILY MVI) TABLET (FP) PO SCH (09:39)
[2018-05-20] MEDS: metoPROLOL SUCCINATE 25 MG TAB.SR.24H (FP) PO SCH (09:39)
[2018-05-20] MEDS: SERTRALINE HCL 50 MG TABLET (FP) PO SCH (09:40)
[2018-05-20] MEDS: CELECOXIB 200 MG CAPSULE PO SCH (09:40)
[2018-05-20] MEDS: GABAPENTIN 300 MG CAPSULE (FP) PO SCH (09:40)
[2018-05-20] MEDS: LORATADINE 10 MG TABLET PO SCH (09:40)
[2018-05-20] MEDS: PANTOPRAZOLE 40 MG TABLET (FP) PO SCH (09:40)
[2018-05-20] MEDS: ASPIRIN 81 MG CHEWABLE TABLETS PO SCH (09:40)
[2018-05-20] MEDS: SENNOSIDES/DOCUSATE COMBO (SENNA PLUS) TABLET (UD) PO SCH (09:40)
[2018-05-20] MEDS: oxyCODONE HCL 10 MG SUSTAINED ACTING TABLET PO SCH (09:41)
[2018-05-20] MEDS: clonazePAM 0.5 MG TABLET PO PRN (09:49)
--- NOTE | 2018-05-20 10:22 | DS ---
Physical Exam: SUBJECTIVE: Patient seen and examined, ambulated with walker independently, Patient denies any paresthesia to the right lower extremity, denies any chest pain or shortness of breath. OBJECTIVE: Patient is a 57-year-old male, With a past medical history of hypertension, hyperlipidemia, depression, anxiety, sleep apnea (oral airway device), and osteoarthritis. Patient is S/P sleeve gastrectomy (09/09/2017) patient was admitted to the medical surgical floor after an elective right total knee replacement with spinal anesthesia, 05/18/2018, Dr Robles, spinal anesthesia. Vital Signs Temperature 99.2 F 05/20/18 06:00 Pulse Rate 107 H 05/20/18 06:00 Respiratory Rate 16 05/20/18 08:07 Blood Pressure 129/75 05/20/18 06:00 O2 Sat by Pulse Oximetry (%) 98 05/20/18 08:07 PHYSICAL EXAM GENERAL: The patient is awake, alert, and fully oriented, in no acute distress. HEAD: Normal with no signs of trauma. EYES: PERRL, extraocular movements intact, sclera anicteric, conjunctiva clear. ENT: Ears normal, nares patent, oropharynx clear without exudates, moist mucous membranes. NECK: Trachea midline, full range of motion, supple. LUNGS: Breath sounds equal, clear to auscultation bilaterally, no wheezes, no crackles, no accessory muscle use. HEART: Regular rate and rhythm, S1, S2 without murmur, rub or gallop. ABDOMEN: Soft, nontender, nondistended, normoactive bowel sounds, no guarding, no rebound, no hepatosplenomegaly, no masses. EXTREMITIES: 2+ pulses, warm, well-perfused, no edema. RIGHT LOWER EXTREMITY: dressing cdi, less than 3 second capillary refill, +3 pedal pulse NEUROLOGICAL: Cranial nerves II through XII grossly intact. Normal speech, gait not observed. PSYCH: Normal mood, normal affect. SKIN: Warm, dry, normal turgor, no rashes or lesions noted. LABS CBC,CMP WBC 8.6 K/mm3 (4.0-10.8) 05/20/18 07:30 RBC 4.17 M/mm3 (4.00-5.60) 05/20/18 07:30 Hgb 12.6 GM/dl (11.7-16.9) 05/20/18 07:30 Hct 37.6 % (35.4-49) 05/20/18 07:30 MCV 90.2 fl (80-96) 05/20/18 07:30 MCH 30.4 pg (25.7-33.7) 05/20/18 07:30 MCHC 33.7 g/dl (32.0-35.9) 05/20/18 07:30 RDW 14.0 % (11.9-15.9) 05/20/18 07:30 Plt Count 164 K/MM3 (134-434) 05/20/18 07:30 MPV 8.5 fl (7.5-11.1) 05/20/18 07:30 Sodium 134 mmol/L (136-145) L 05/19/18 07:15 Potassium 4.4 mmol/L (3.5-5.1) 05/19/18 07:15 Chloride 102 mmol/L (98-107) 05/19/18 07:15 Carbon Dioxide 26 mmol/L (22-28) 05/19/18 07:15 Anion Gap 6 MMOL/L (8-16) L 05/19/18 07:15 BUN 18 mg/dl (7-18) 05/19/18 07:15 Creatinine 0.7 mg/dl (0.6-1.3) 05/19/18 07:15 Creat Clearance w eGFR > 60 (>60) 05/19/18 07:15 Random Glucose 157 mg/dl (74-106) H 05/19/18 07:15 Calcium 8.8 mg/dl (8.4-10.2) 05/19/18 07:15 HOSPITAL COURSE: Patient was admitted to the medical surgical floor after an elective total knee replacement on May 18 2018, Dr. Robles spinal anesthesia. Patient ambulated the hallway with physical therapy on postoperative day 1, restorative services was recommended. Pain was controlled with both narcotic and nonnarcotic analgesics. On postoperative day 2 Hemovac drain was removed intact without complications patient tolerated procedure well. Iron supplements was continued since patient is post bariatric surgery August 2017. Repeat hemoglobin today Stable as noted above. Patient has a past medical history of hypertension, Toprol was continued throughout admission blood pressure remained at goal. Patient has a past medical history of anxiety/ depression home dose Zoloft and trazodone was discontinued. PLAN: - Discharged to short-term rehabilitation Date of Admission:05/18/18 Date of Discharge: 05/20/18 Minutes to complete discharge: 45 Visit type - Case Type Case Type: Scheduled - Emergency Emergency Visit: No - New patient This patient is new to me today: No - Critical Care Critical Care patient: No
[2018-05-20] MEDS ORDERED: Linaclotide [Linzess] 145 MCG) PO SCH (11:02)
--- NOTE | 2018-05-20 12:18 | PN ---
Progress Note (short form) - Note Progress Note: POD#2 POST TKR Doing well Pain well controlled Vitals All stable CVS Stable RESP Clear ABD Soft MSKELETAL Drain removed Bandage dry Nocalf or subsartorian tendernessNo NVD ASSESS Doing well PLAN D/C to rehab Pain MX DVT prophylaxis Baby aspirin daily PT mobilize see in office in 3 weeks
--- NOTE | 2018-05-30 14:32 | PATH ---
Surgical Pathology Report Patient Name: ISAIAH ABREU Med. Rec. #: [id number] /Age/Gender: 1960 (Age: 57) / M Account: [id number] Location: [facility] MED-SURG Taken: 05/18/2018 Received: 05/18/2018 Reported: 05/30/2018 Physicians: Akhil Robles M.D. Specimen(s) Received RIGHT KNEE BONES Clinical History Unilateral primary osteoarthritis right knee Final Diagnosis KNEE BONES, RIGHT, TOTAL KNEE REPLACEMENT: DEGENERATIVE JOINT DISEASE. Electronically Signed Lola Camp M.D. Gross Description Received in formalin labeled "right knee bones," is a 15.0 x 12.5 x 2.0 cm aggregate of multiple portions of bone and soft tissue, consistent with knee bones. The tibial plateau measures 9.0 x 6.1 x 2.0 cm. There is a 3.5 cm in greatest dimension area of eburnation present. The remaining articular surfaces are johansen-yellow and focally granular. The underlying trabecular bone is yellow and hard. Clinical Research Spec sections are submitted in one cassette, following decalcification. 05/20/2018 saudi05/20/2018
== END 2018-05-20 12:05 | DRG 470 ==
LOC: FM/S 10:54
PROVIDERS: ADMIT Orthopaedic Surgery Orthopaedic Surgery of the Spine; ATTEND Orthopaedic Surgery Orthopaedic Surgery of the Spine
PROC: 0SRC0J9 Replacement of Right Knee Joint with Synthetic Substitute, Cemented, Open Approach (ICD-10-PCS; principal; 2018-05-18 17:40)
DX: M17.11 Unilateral primary osteoarthritis, right knee (principal); I10 Essential (primary) hypertension; E78.5 Hyperlipidemia, unspecified; F41.8 Other specified anxiety disorders; G47.30 Sleep apnea, unspecified; Z98.84 Bariatric surgery status
CPT/HCPCS: 36415; 73560-TC-RT-FY; 80048; 85027; 88304-TC; 88311-TC; 94760; 97116-GP; 97162-GP; J0131

== ENCOUNTER 2018-08-10 08:00 | Inpatient (IN) | payer BC ==
[2018-07-25 11:40] VITALS: BMI 27.6
[~2018-08-10 08:00] MED LIST changes: -MOMETASONE FUROATE NS SCH; -PATIENT'S OWN MEDICATION (NON-FORMULARY) (Hydrocodone/Acetaminophen [Vicodin Es 7.5-300 Mg PO PRN; -PATIENT'S OWN MEDICATION (NON-FORMULARY) (Sertraline Hcl [Zoloft] 200 MG) PO SCH; -TRANEXAMIC ACID 1000 MG/10 ML VIAL IVPUSH ONE; -VANCOMYCIN 1,000 MG in DEXTROSE 5%-WATER - 250 ML IVPB ONE
[2018-08-10] MEDS ORDERED: VANCOMYCIN 1,250 MG in DEXTROSE 5%-WATER - 250 ML IVPB ONE (14:00)
[2018-08-10] MEDS ORDERED: MIDAZOLAM HCL 2 MG/2 ML SINGLE DOSE VIAL ONE (15:49)
[2018-08-10] MEDS ORDERED: BUPIVACAINE LIPOSOME/PF (EXPAREL) 266 MG/20 ML VIAL ONE (15:49)
[2018-08-10] MEDS ORDERED: SODIUM CHLORIDE 0.9% P/F 10 ML VIAL IJ ONE (15:49)
[2018-08-10] MEDS ORDERED: LIDOCAINE 1% P/F 10 MG/ML VIAL ONE (16:15)
[2018-08-10] MEDS ORDERED: BUPIVACAINE HCL/PF 0.5% (5MG/ML) 10 ML VIAL ONE (16:19)
[2018-08-10] MEDS ORDERED: oxyCODONE HCL 5 MG TABLET PO PRN ×2 (17:05)
[2018-08-10] MEDS ORDERED: ONDANSETRON 4 MG/2 ML VIAL IVPUSH PRN ×2 (17:08→21:13)
[2018-08-10] MEDS ORDERED: EPINEPHrine/PF 1 MG/1 ML (1:1,000) AMPULE ONE (17:12)
[2018-08-10] MEDS ORDERED: KETOROLAC TROMETHAMINE 60 MG/2 ML VIAL ONE (17:12)
[2018-08-10] MEDS ORDERED: BUPIVACAINE HCL/PF 2.5 MG/ML - 30 ML VIAL IJ ONE (17:13)
[2018-08-10] MEDS ORDERED: morphine CARPU-JECT 10 MG/1 ML DISP.SYRIN ONE (17:14)
[2018-08-10] MEDS ORDERED: PROPOFOL 20 ML ONE ×5 (17:16→21:29)
[2018-08-10] MEDS ORDERED: TRANEXAMIC ACID 1000 MG/10 ML VIAL ONE ×2 (17:16→21:00)
[2018-08-10] MEDS ORDERED: CLINDAMYCIN PHOSPHATE 600 MG/4 ML VIAL ONE (17:16)
[2018-08-10] MEDS ORDERED: ONDANSETRON 4 MG/2 ML VIAL ONE (18:49)
[2018-08-10] MEDS ORDERED: DEXAMETHASONE SOD PHOSPHATE 4 MG/1 ML VIAL ONE (18:49)
[2018-08-10] MEDS ORDERED: MAGNESIUM HYDROX 2400MG/30ML ORAL SUSPENSION 30 ML CUP PO PRN (21:13)
[2018-08-10] MEDS ORDERED: MAG HYDROX/AL HYDROX/SIMETH 30 ML UNIT-DOSE CUP PO PRN (21:13)
[2018-08-10] MEDS ORDERED: LACTATED RINGERS SOLUTION 1,000 ML IV SCH (21:15)
[2018-08-10] MEDS ORDERED: DEXTRIN PO PRN (21:15)
[2018-08-10] MEDS ORDERED: PATIENT'S OWN MEDICATION (NON-FORMULARY) (Magnesium Hydrox 2400mg/30ml 30 ML) PO PRN (21:15)
[2018-08-10] MEDS ORDERED: clonazePAM 0.5 MG TABLET PO PRN (21:15)
[2018-08-10] MEDS ORDERED: ENOXAPARIN NA (PORCINE) 30 MG/0.3 ML DISP.SYRIN SQ SCH (22:00)
[2018-08-10] MEDS ORDERED: traZODone HCL 50 MG TABLET (FP) PO SCH (22:00)
[2018-08-10] MEDS ORDERED: ASPIRIN 325 MG TABLET PO SCH (22:00)
--- NOTE | 2018-08-10 22:09 | PN ---
Progress Note (short form) - Note Progress Note: 57M s/p LEFT TKA POD #0. -Pain control. -DVT PPx: -Chemical: ASA 81mg BID x 6 weeks post-op. -Mechanical: MICHAEL's, SCD's. -f/u drain output; ok to remove drain when <30cc/8 hours. -Incentive spirometry. -PT/OT/Rehab, OOB. -WBAT LLE. -Post-op Clindamycin x 3 doses. -f/u post-op TOV. -f/u AM labs. -Diet. -Care per medical hospitalist team. -Discharge planning: home with services; f/u [facility] [place] office Wed08/19/2018, call for appointment: . -Will follow. Feliz Robles MD (Orthopaedic Surgery).
--- NOTE | 2018-08-10 22:17 | OP ---
Operative Note - Note: Operative Date: 08/10/18 Pre-Operative Diagnosis: 1. Left knee DJD. 2. Valgus knee. 3. Patellar subluxation Operation: 1. Left total knee replacement. 2. Left patellar lateral release Findings: 1. Valgus deformity 2. Patellar instability 3. Tight postero-lateral corner Tourniquet Pressure: 350mmHg Tourniguet Time: 161 minutes Implants: [employer]. Femur - 6. Tibia - 7. Poly - 9mm, PS. Patella - 27mm, symmetric Post-Operative Diagnosis: Same as Pre-op Surgeon: Feliz Robles Head Of Transport Logistics: Akhil Robles Anesthesiologist/CRISIS WORKER: Ash Rolle Anesthesia: Spinal, Local Specimens Removed: Bone. Soft tissue Estimated Blood Loss (mls): 0 Drains & Tubes with Location: 1 x deep HemoVac Fluid Volume Replaced (mls): 1,400 Operative Report Dictated: Yes
[2018-08-10] MEDS: ATORVASTATIN CA 10 MG TABLET (FP) PO SCH (23:00)
[2018-08-10] MEDS: CYCLOBENZAPRINE HCL 10 MG TABLET (FP) PO SCH ×2 (23:00→23:58)
[2018-08-10] MEDS: GABAPENTIN 300 MG CAPSULE (FP) PO SCH ×2 (23:00→23:58)
[2018-08-10] MEDS: ACETAMINOPHEN 325 MG TABLET (FP) PO SCH ×2 (23:00→23:57)
[2018-08-10] MEDS: oxyCODONE HCL 10 MG SUSTAINED ACTING TABLET PO SCH ×2 (23:00→23:58)
[2018-08-10] MEDS: ASPIRIN COATED 81 MG TABLET.EC PO SCH (23:00)
--- NOTE | 2018-08-10 23:16 | CONSULT ---
Consult Consult Specialty:: Hospitalist - Past Medical History SENIOR ACCOUNTING MANAGER: Yes: Syncope Cardio/Vascular: Yes: CAD, HTN, Hyperlipdemia, Other (Ventricular premature beats) - Past Surgical History Past Surgical History: Yes: Tonsillectomy - Alcohol/Substance Use Hx Alcohol Use: No - Smoking History Smoking history: Never smoked Have you smoked in the past 12 months: No Home Medications - Allergies Allergies/Adverse Reactions: Allergies Allergy/AdvReac Type Severity Reaction Status Date / Time Penicillins Allergy Severe Difficulty Verified 07/25/18 11:04 Breathing amlodipine [From Norvas] Allergy Verified 08/10/18 13:14 - Home Medications Home Medications: Ambulatory Orders Atorvastatin Ca [Lipitor] 10 mg PO HS 09/07/17 Clonazepam 0.5 mg PO QID 09/07/17 Mometasone Furoate 34 gm NS DAILY 09/07/17 Sertraline HCl [Zoloft] 200 mg PO DAILY 09/07/17 Cholecalciferol (Vitamin D3) [Vitamin D3] 5,000 unit PO DAILY 09/09/17 Fexofenadine HCl [Wendy Allergy] 60 mg PO DAILY 09/09/17 Metoprolol Succinate 25 mg PO HS 09/09/17 Calcium Carbonate/Vitamin D3 [Calcium 600 + Vit D Tablet] 2 each PO BID Linaclotide [Linzess] 145 mcg PO HS 02/02/18 Meloxicam [Mobic] 15 mg PO DAILY 02/02/18 Clonazepam 0.5 mg PO DAILY PRN 04/28/18 Cyclobenzaprine HCl [Flexeril 10 mg] 10 mg PO HS 04/28/18 Ginkgo Biloba 120 mg PO BID 04/28/18 [id number] 149-Hyal [Glucosamine-Chondr Complex Tab] 2 each PO DAILY 04/28/18 Multivitamins [Multivit ([facility] Formulary)] 1 tab PO DAILY tab 05/20/18 Acetaminophen [Tylenol .Regular Strength -] 650 mg PO HS 07/25/18 Ascorbic Acid [Vitamin C -] 500 mg PO DAILY 07/25/18 Aspirin [ASA -] 81 mg PO DAILY 07/25/18 Cyanocobalamin (Vitamin B-12) [Nascobal] 1 each NS WEEKLY 07/25/18 Dextrin [Fiber] 350 gm PO DAILY PRN 07/25/18 Docusate Sodium [Colace -] 300 mg PO HS 07/25/18 Glucosa Thompson 2Kcl/Chondroitin Thompson [Glucosamine & Chondroitin Cap] 1 each PO DAILY 07/25/18 Iron,Carbonyl/Ascorbic Acid [Iron 100-Vitamin C Tablet] 1 each PO DAILY Magnesium Hydrox 2400MG/30Ml [Milk of Magnesia -] 30 ml PO DAILY PRN 07/25/18 Magnesium Oxide [Magnesium] 500 mg PO DAILY 07/25/18 Om3/Dha/Epa/Cod Liver Oil/A/D3 [Cod Liver Oil Softgel] 3 each PO HS 07/25/18 Omeprazole 20 mg PO DAILY 07/25/18 Oxycodone HCl/Acetaminophen [Percocet 10-325 mg Tablet] 2 each PO TID 07/25/18 Sennosides [Senokot] 3 tab PO HS 07/25/18 Sennosides [Senokot] 8.6 mg PO DAILY 07/25/18 traZODone HCL [Trazodone HCl] 350 mg PO HS 07/25/18 Physical Exam Vital Signs: Vital Signs Temperature 98.3 F 08/10/18 13:41 Pulse Rate 80 08/10/18 13:41 Respiratory Rate 20 08/10/18 13:41 Blood Pressure 102/70 08/10/18 13:41 O2 Sat by Pulse Oximetry (%)
--- NOTE | 2018-08-10 23:51 | CONSULT ---
Consultation: REQUESTING PROVIDER: Dr. Akhil Womack CONSULT REQUEST: We have been asked to medically evaluate this patient for medical management s/p left total knee replacement. HISTORY OF PRESENT ILLNESS: 57 year old male with a PMH significant for hypertension, hyperlipidemia, depression, anxiety, sleep apnea (oral airway device), and osteoarthritis. S/P sleeve gastrectomy (09/09/2017) and right total knee 05/18/2018. Patient had left total knee replacement today with Dr. Robles. Patient reports he is feeling well after the surgery. He feels hungry. Has not yet passed flatus. Denies ANDREA, lightheadedness, dizziness, chest pain, SOB, n/v/d. Plan is for patient to be d/ [place] to [facility] for subacute rehab. REVIEW OF SYSTEMS: CONSTITUTIONAL: Absent: fever, chills, diaphoresis, generalized weakness, malaise, loss of appetite, weight change HEENT: Absent: rhinorrhea, nasal congestion, throat pain, throat swelling, difficulty swallowing, mouth swelling, ear pain, eye pain, visual changes CARDIOVASCULAR: Absent: chest pain, syncope, palpitations, irregular heart rate, lightheadedness , peripheral edema RESPIRATORY: Absent: cough, shortness of breath, dyspnea with exertion, orthopnea, wheezing, stridor, hemoptysis GASTROINTESTINAL: Absent: abdominal pain, abdominal distension, nausea, vomiting, diarrhea, constipation, melena, hematochezia GENITOURINARY: Absent: dysuria, frequency, urgency, hesitancy, hematuria, flank pain, genital pain MUSCULOSKELETAL: Absent: myalgia, arthralgia, joint swelling, back pain, neck pain SKIN: Absent: rash, itching, pallor HEMATOLOGIC/IMMUNOLOGIC: Absent: easy bleeding, easy bruising, lymphadenopathy, frequent infections ENDOCRINE: Absent: unexplained weight gain, unexplained weight loss, heat intolerance, cold intolerance NEUROLOGIC: Absent: headache, focal weakness or paresthesias, dizziness, unsteady gait, seizure, mental status changes, bladder or bowel incontinence PSYCHIATRIC: Absent: anxiety, depression, suicidal or homicidal ideation, hallucinations. PHYSICAL EXAMINATION Vital Signs - 24 hr 08/10/18 08/10/18 08/10/18 13:41 22:09 22:10 Temperature 98.3 F 97.8 F 97.8 F Pulse Rate 80 86 78 Respiratory 20 16 18 Rate Blood Pressure 102/70 125/77 122/73 O2 Sat by Pulse 100 100 Oximetry (%) 08/10/18 08/10/18 08/10/18 22:15 22:20 22:24 Temperature 97.8 F 97.8 F 97.8 F Pulse Rate 82 82 80 Respiratory 16 16 16 Rate Blood Pressure 122/80 123/74 128/86 O2 Sat by Pulse 100 100 100 Oximetry (%) 08/10/18 08/10/18 08/10/18 22:25 22:55 23:10 Temperature 97.8 F 97.8 F 97.8 F Pulse Rate 80 84 80 Respiratory 16 16 16 Rate Blood Pressure 125/85 122/84 126/78 O2 Sat by Pulse 100 100 100 Oximetry (%) 08/10/18 23:15 Temperature 97.8 F Pulse Rate 80 Respiratory 16 Rate Blood Pressure 126/78 O2 Sat by Pulse Oximetry (%) GENERAL: Awake, alert, and fully oriented, in no acute distress. HEAD: Normal with no signs of trauma. EYES: Pupils equal, round and reactive to light, extraocular movements intact, sclera anicteric, conjunctiva clear. No lid lag. EARS, NOSE, THROAT: Ears normal, nares patent, oropharynx clear without exudates. Moist mucous membranes. NECK: Normal range of motion, supple without lymphadenopathy, JVD, or masses. LUNGS: Breath sounds equal, clear to auscultation bilaterally. No wheezes, and no crackles. No accessory muscle use. HEART: Regular rate and rhythm, normal S1 and S2 without murmur, rub or gallop. ABDOMEN: Soft, nontender, not distended, normoactive bowel sounds, no guarding, no rebound, no masses. No hepatomegaly or splenomegaly. MUSCULOSKELETAL: Normal range of motion at all joints. No bony deformities or tenderness. No CVA tenderness. UPPER EXTREMITIES: 2+ pulses, warm, well-perfused. No cyanosis. No clubbing. Cap refill <2 seconds. No peripheral edema. Left leg: scd/thalia, Hemovac drain intact with small amount of serosanguinous dressing, dressing CDI less than 2 second capillary refill +3 pedal pulse NEUROLOGICAL: No facial droop, normal speech. Normal gait. PSYCHIATRIC: Cooperative. Good eye contact. Appropriate mood and affect. SKIN: Warm, dry, normal turgor, no rashes or lesions noted. Active Medications Generic Name Dose Route Start Last Admin Trade Name Freq PRN Reason Stop Dose Admin Acetaminophen 650 mg 08/10/18 17:15 08/10/18 23:00 Tylenol - PO 08/13/18 17:14 650 mg Q6H MADHAVI Administration Al Hydroxide/Mg Hydroxide 30 ml 08/10/18 21:13 Mylanta Oral Suspension - PO Q4H PRN DYSPEPSIA Aspirin 81 mg 08/10/18 23:00 08/10/18 23:00 Ecotrin - PO 81 mg BID MADHAVI Administration Atorvastatin Calcium 10 mg 08/10/18 22:00 08/10/18 23:00 Lipitor - PO 10 mg HS MADHAVI Administration Calcium Carbonate/Cholecalciferol 2 tab 08/10/18 22:00 [place] 500+D - PO BID MADHAVI Clonazepam 0.5 mg 08/10/18 21:15 Klonopin - PO DAILY PRN ANXIETY Cyclobenzaprine HCl 10 mg 08/10/18 22:00 08/10/18 23:00 Flexeril - PO 10 mg HS MADHAVI Administration Docusate Sodium 300 mg 08/10/18 22:00 Colace - PO HS [facility] Fentanyl 50 mcg 08/10/18 17:08 Sublimaze Injection - IVPUSH [id number] PRN PAIN-PACU ORDER X 4 DOSES ONLY Gabapentin 300 mg 08/10/18 22:00 08/10/18 23:00 Neurontin - PO 300 mg BID MADHAVI Administration Lactated Ringer's 1,000 mls @ 125 mls/hr 08/10/18 21:15 Lactated Ringers Solution IV 08/11/18 06:00 ASDIR [facility] Clindamycin Phosphate 900 mg in 50 mls @ 100 mls/hr 08/11/18 01:00 Cleocin 900 Mg Premix Ivpb - IVPB 08/11/18 13:29 Q6H [facility] Protocol Loratadine 10 mg 08/11/18 10:00 Claritin - PO DAILY MADHAVI Magnesium Hydroxide 30 ml 08/10/18 21:13 Milk Of Magnesia - PO PRN PRN CONSTIPATION Metoprolol Succinate 25 mg 08/10/18 22:00 Toprol Xl - PO HS MADHAVI Non-Formulary Medication 0.5 mg 08/10/18 22:00 Clonazepam [Clonazepam] PO QID MADHAVI Non-Formulary Medication 145 mcg 08/10/18 22:00 Linaclotide [Linzess] PO HS [facility] Non-Formulary Medication 34 gm 08/11/18 10:00 Mometasone Furoate [Mometasone Furoate] NS DAILY [facility] Ondansetron HCl 4 mg 08/10/18 21:13 Zofran Injection IVPUSH Q6H PRN NAUSEA Oxycodone HCl 5 mg 08/10/18 17:05 Roxicodone - PO Q3H PRN PAIN LEVEL 1-5 Oxycodone HCl 10 mg 08/10/18 17:05 Roxicodone - PO Q3H PRN PAIN LEVEL 6-10 Oxycodone HCl 10 mg 08/10/18 22:00 08/10/18 23:00 Oxycontin - PO 08/13/18 17:05 10 mg BID MADHAVI Administration Pantoprazole Sodium 40 mg 08/11/18 10:00 Protonix - PO DAILY [facility] Quetiapine Fumarate 200 mg 08/11/18 10:00 Seroquel - PO DAILY [facility] Senna/Docusate Sodium 2 tablet 08/10/18 22:00 Pericolace - PO BID MADHAVI Trazodone HCl 300 mg/ 350 mg 08/10/18 22:45 Trazodone HCl 50 mg PO HS [facility] ASSESSMENT/PLAN: 57 year old male with a PMH significant for hypertension, hyperlipidemia, depression, anxiety, sleep apnea (oral airway device), and osteoarthritis. S/P sleeve gastrectomy (09/09/2017) and right total knee 05/18/2018. Patient had left total knee replacement today with Dr. Robles. Total knee replacement, POD #0 - Pain control: - Fentanyl 50 mcg IVP q5n PRN max 4 doses - Oxycodone 10 MG BID - PRN Oxycodone 5 or 10 mg for breakthrough pain - Monitor drain output; - Remove drain when output <30cc/8 hours - Incentive spirometry. - PT/OT/Rehab, OOB. - WBAT LLE - Clindamycin 900 mg IV q8h x 3 doses - Post-op TOV - monitor hgb, continue iron supplements, since patient is post bariatric surgery. Hypertension - Metoprolol Succinate 25 mg PO QHS - Monitor BP HLD - Atorvastatin 10 mg PO QHS Neuropathy - Gabapentin 300 mg PO BID Muscle Spasm - Cyclobenzaprine 10 mg PO QHS Anxiety/depression - Seroquel 200 mg PO qday - Klonopin 0.5 mg PO qday PRN - Trazadone 350 mg PO QHS Bowel Management - Colace 300 mg PO QHS - Pericolace 2 tabs PO BID - MOM 30 mL PO PRN Seasonal Allergies - Loratidine 10 mg PO qday Supplement - Os-[place] 500 mg +D 2 tabs PO BID FEN - LR @ 125 cc/hr - Replete electrolytes - Sodium restricted diet Prophylaxis - DVT: ASA 81 mg BID x 6 weeks post op, SCDs, TEDs, oob - GI: Protonix 40 mg PO qday Dispo: We will continue to follow the patient. Thank you for this consultative opportunity. Visit type - Emergency Visit Emergency Visit: No - New Patient This patient is new to me today: Yes Date on this admission: 08/11/18 - Critical Care Critical Care patient: No
[2018-08-10] MEDS: TRAZODONE HCL PO SCH (23:58)
[2018-08-10] MEDS: CALCIUM 500MG/VIT-D 200 UNITS COMBO TABLET (FP) PO SCH (23:58)
[2018-08-10] MEDS: SENNOSIDES/DOCUSATE COMBO (SENNA PLUS) TABLET (UD) PO SCH (23:58)
[2018-08-10] MEDS: metoPROLOL SUCCINATE 25 MG TAB.SR.24H (FP) PO SCH (23:58)
[2018-08-10] MEDS: DOCUSATE SODIUM 100 MG CAPSULE (FP) PO SCH (23:58)
[2018-08-11] MEDS: TRAZODONE HCL PO SCH (00:31)
[2018-08-11] MEDS: CLINDAMYCIN 900 MG PREMIX IVPB 900 MG/50 ML BAG IVPB SCH ×3 (00:42→12:33)
[2018-08-11] MEDS ORDERED: CLINDAMYCIN 600MG PREMIX IVPB 600 MG/50 ML BAG IVPB SCH (02:00)
[2018-08-11] MEDS: ACETAMINOPHEN 325 MG TABLET (FP) PO SCH ×4 (06:00→22:25)
[2018-08-11 08:31] LABS: HEMOGLOBIN 13.1 GM/dl (11.7-16.9); MCH 29.7 pg (25.7-33.7); MCHC 32.7 g/dl (32.0-35.9); MEAN CELL VOLUME 90.8 fl (80-96); MEAN PLT VOLUME 8.1 fl (7.5-11.1); PLATELET COUNT 179 K/MM3 (134-434); RBC 4.41 M/mm3 (4.00-5.60); RDW 13.3 % (11.9-15.9); WHITE BLOOD COUNT 10.8 K/mm3 (4.0-10.8)
[2018-08-11 08:42] LABS: ANION GAP 7 MMOL/L (8-16); BLOOD UREA NITROGEN 22 mg/dl (7-18); CALCIUM 8.8 mg/dl (8.4-10.2); CHLORIDE 101 mmol/L (98-107); CO2 27 mmol/L (22-28); CREATININE 0.8 mg/dl (0.6-1.3); GLUCOSE,RANDOM 95 mg/dl (74-106); SODIUM 135 mmol/L (136-145)
--- NOTE | 2018-08-11 09:04 | OP ---
Date of Operation: 08/10/2018 Pre-Operative Diagnosis: 1. Left knee tricompartment osteoarthritis. 2. Valgus deformity of the left knee. 3. Left knee patellar subluxation/instability. Post-Operative Diagnosis: 1. Left knee tricompartment osteoarthritis. 2. Valgus deformity of the left knee. 3. Left knee patellar subluxation/instability. Procedure Performed: 1. Left total knee replacement via subvastus approach. 2. Open lateral retinacular release left knee. Surgeon: Feliz Robles M.D. Figure Clerk: Akhil Robles M.D. and [facility] staff physician marketing operations assistant. Anesthesiologist: Ash Rolle MD Anesthesia: Spinal, sedation, adductor canal block. Position: Supine Incision: Midline Specimens Removed: Bone, soft tissue. Estimated Blood Loss: 0 mL. Intravenous Fluid: 1.4L crystalloid. Specimens: None. Drains: 1 x deep HemoVac. Complications: None. Urine Output: None. Bacteriology: None. Transfusions: None. Closure: No. 1 and 2-0 Vicryl, 3-0 Biosyn absorbable sutures. Tourniquet Pressure: 350 mmHg. Tourniquet Time: 161 minutes. INDICATIONS: The patient is a 57-year-old male who was indicated for a left total knee replacement to facilitate improved motion and mobilization and to prevent the complications associated with a sedentary lifestyle. The patient was identified in the holding area by his armband. A long discussion was held with the patient regarding the risks, benefits, and alternatives of the above-named procedure. The risks include, but are not limited to: Pain, bleeding, infection, damage to surrounding structures (including nerves, blood vessels, skin, ligaments, tendons, and bone), wound complications, failure of hardware/implants/reduction , need for further surgery, blood clots, myocardial infarction, cerebrovascular injury, pulmonary embolism, anesthesia complications, compartment syndrome, limb loss, limp, loss of function, and . Benefits were as mentioned above. Alternatives include no surgery. All questions were answered. The patient understood and agreed to the procedure. Informed consent was obtained, witnessed, and verified. The patient's correct operative limb - that is the left lower extremity - was marked and he then received a left lower extremity adductor canal nerve block in the preoperative holding area. The patient was taken to the operating room after being seen by the anesthesia and nursing staff. PROCEDURE: The patient was brought into the operating room and transferred to the OR table , where he was secured with a safety strap. Consent and the operative site were again verified with the patient and nursing and anesthesia staff. Upon arrival into the operating room, he received 1g of intravenous vancomycin, 2g of intravenous Ancef, and 1g intravenous tranexamic acid (TXA). A time-out was then done led by , the attending surgeon. A preoperative orthopedic examination revealed a notable flexion contracture of the left knee. The patient was positioned with all bony prominences well padded, and a tourniquet was placed proximally on the right thigh and set to 350 mmHg. The operative limb was prepped in standard sterile fashion using betadine prep & scrub, wiped off with alcohol, DuraPrep applied, and then free draped. A time-out was again done. The limb was then exsanguinated using elevation and an Esmarch. The tourniquet was inflated, and the case began. A midline longitudinal incision was made over the right knee followed by a subvastus exposure. The infrapatellar fat pad was excised. A peripatellar neurectomy was performed using electrocautery. The patella was everted, and a free-hand cut was made using an oscillating saw blade to facilitate patellar resurfacing. With the intention of implanting a 27mm, symmetric patellar button, a drill guide was utilized to ream 3 drill holes into the cut surface of the patella. The knee was then flexed to 90 degrees and the anterior cruciate ligament (ACL) and posterior cruciate ligament (PCL) were transected using electrocautery. Throughout the case, sharp and blunt Hohmann retractors were used to provide full exposure of the knee, and also to protect the collateral ligaments, the patellar ligament, the quadriceps mechanism, and other soft tissue structures. Next, attention was turned to the proximal tibia. The tibia was subluxed anteriorly and the extra-medullary jig was assembled and placed. With alignment verified, the tibial cutting block was pinned into position and the proximal tibial cut was made using an oscillating saw. The bone cut was freed of all soft tissue attachments using electrocautery. Next, attention was turned to the distal femur. An opening reamer was used to access the medullary canal of the distal femur. This was approximately 0.5-1cm anterior to the intercondylar notch and centered of the lateral aspect of the medial femoral condyle. The intra-medullary alignment jig was then inserted, and the distal femoral cutting block was pinned into position. The distal femoral cut was then made using an oscillating saw. Using a combination of [place]'s line, the trans-epicondylar axis, and the posterior condylar axis, appropriate rotation of the distal femoral sizing block was dialed in. The size of the distal femur was measured and the 4-in-1 distal femoral cutting block was pinned into position. The anterior, anterior chamfer, posterior, and posterior chamfer cuts were then made using an oscillating saw. All bone cuts were removed. With the knee in full extension, laminar spreaders were used to facilitate excision of the medial and lateral menisci using electrocautery. With the knee in full extension and gentle traction applied to the ankle, a rectangular box could be visualized where the bone cuts had been made. With gentle impaction of the proximal tibia into the distal femur, excellent limb alignment was confirmed. A spacer block was then used to confirm symmetric space/gap balance in both full extension and in 90 degrees of flexion of the knee. The notch cutting block was pinned into place over the distal femur and the notch cuts were made using a chisel and an oscillating saw. The bone cut and soft tissue attachments were excised using electrocautery. The tibial preparation plate was then pinned into place, the trial femoral component was positioned, and a 9mm trial polyethylene liner was inserted. The knee was then taken through a full range of motion, demonstrating excellent stability and range of motion in the coronal, sagittal, and axial planes from 0 to 130 degrees of flexion. At 90 degrees of flexion, 2 lug holes were drilled via the femoral trial component into the distal femoral bone bed. The femoral trial component and polyethylene liner were then removed, and the proximal tibial preparation was completed using a drill guide, drill, and keel punch. All tibial trial components were then removed. All cut bone surfaces, soft tissues, and remaining surgically exposed structures were then thoroughly irrigated using pulse lavage. The cut bone surfaces were dried, and the interstices of the bone bed were free of blood, water, and lipid content. Final components were implanted using low viscosity cement mixed in a vacuum. Cementation was performed using a pressurized gun. The trial 9mm liner was then inserted. The knee was then placed in full extension while the cement hardened. All extraneous cement was removed. Next, the knee was taken through a full range of motion and alignment and stability in the coronal, sagittal, and rotation planes in full extension and at 90 degrees of flexion were satisfactory. The leg was straightened, and passive range of motion was demonstrated from 0 to 130 degrees of knee flexion. The knee was thoroughly irrigated once again after removal of the trial polyethylene insert. The final polyethylene liner was then inserted. Once again, the knee was taken through a full range of motion and alignment and stability in the coronal, sagittal, and rotation planes in full extension and at 90 degrees of flexion were satisfactory. The leg was straightened, and passive range of motion was demonstrated from 0 to 130 degrees of knee flexion. Final components utilized: Manquin Triathlon Femur - size #6. Tibia - size #7. Polyethylene liner - 9mm, PS (posterior stabilized). Patella - 27mm, symmetric. Once again, the wounds were copiously irrigated. A 1/8" HemoVac drain was placed into the subvastus space, exiting the knee supero-laterally. The wounds were closed primarily using No. 1 and 2-0 Vicryl sutures, and the skin was eventually closed using 3-0 Biosyn in intracuticular running fashion. Another 1g of Ancef and 1g TXA were administered intravenously. The tourniquet was then released at a final time of 161 minutes. Next, the skin surface was cleaned using saline-soaked lap pads and then dried using dry lap pads. Benzoin and Steri-Strips as well as a JumpStart dressing were applied over the wounds, and Webril as well as Jatin wraps were placed from the foot all the way up to the thigh with a compressive, sterile dressing. The sponge and needle counts were correct at the end of the case, and I, the attending surgeon, was present and scrubbed throughout the case. The patient was then transferred to the hospital bed and then to the recovery room in stable condition having tolerated this procedure well. MD EULALIA Rocha/[id number] MTDD
[2018-08-11] MEDS: GABAPENTIN 300 MG CAPSULE (FP) PO SCH ×2 (09:19→22:24)
[2018-08-11] MEDS: PANTOPRAZOLE 40 MG TABLET (FP) PO SCH (09:19)
[2018-08-11] MEDS: CALCIUM 500MG/VIT-D 200 UNITS COMBO TABLET (FP) PO SCH ×2 (09:19→22:24)
[2018-08-11] MEDS: SENNOSIDES/DOCUSATE COMBO (SENNA PLUS) TABLET (UD) PO SCH ×2 (09:19→22:25)
[2018-08-11] MEDS: ASPIRIN COATED 81 MG TABLET.EC PO SCH ×2 (09:19→22:23)
[2018-08-11] MEDS: oxyCODONE HCL 10 MG SUSTAINED ACTING TABLET PO SCH ×2 (09:20→22:24)
[2018-08-11] MEDS: QUEtiapine FUMARATE 200 MG TABLET PO SCH (09:23)
[2018-08-11] MEDS ORDERED: PT OWN MED DRAWER 7, Y5N ONE ×2 (09:56→21:22)
[2018-08-11] MEDS: MOMETASONE FUROATE 50 MCG NS SCH (09:58)
[2018-08-11] MEDS: clonazePAM 0.5 MG TABLET PO SCH ×4 (09:58→22:23)
[2018-08-11] MEDS ORDERED: LORATADINE 10 MG TABLET PO SCH (10:00)
[2018-08-11] MEDS ORDERED: MULTIVITAMINS (DAILY MVI) TABLET (FP) PO SCH (10:00)
[2018-08-11] MEDS ORDERED: PANTOPRAZOLE 20 MG TABLET (FP) PO SCH (10:00)
[2018-08-11] MEDS ORDERED: MOMETASONE FUROATE NS SCH (10:00)
[2018-08-11] MEDS ORDERED: MOMETASONE FUROATE 50 MCG IH SCH (10:00)
--- NOTE | 2018-08-11 11:08 | PN ---
Progress Note (short form) - Note Progress Note: POD #1 - s/p left total knee replacement under spinal anesthesia with peripheral nerve blocks. VSS. Pt. doing well, sitting up comfortably in chair. No complaints. Good pain control. No apparent anesthetic complications noted. Continue current care.
--- NOTE | 2018-08-11 11:46 | PN ---
Physical Exam: SUBJECTIVE: Patient seen and examined. Feels well, did well in therapy. OBJECTIVE: 30 mL output in drain. Vital Signs Period Temp Pulse Resp BP Sys/Stout Pulse Ox Last 24 Hr 97.8 F-99.4 F 78-102 16-20 90-128/51-86 94-100 GENERAL: The patient is awake, alert, and fully oriented, in no acute distress. HEAD: Normal with no signs of trauma. EYES: PERRL, extraocular movements intact, sclera anicteric, conjunctiva clear. No ptosis. ENT: Ears normal, nares patent, oropharynx clear without exudates, moist mucous membranes. NECK: Trachea midline, full range of motion, supple. LUNGS: Breath sounds equal, clear to auscultation bilaterally, no wheezes, no crackles, no accessory muscle use. HEART: Regular rate and rhythm, S1, S2 without murmur, rub or gallop. ABDOMEN: Soft, nontender, nondistended, normoactive bowel sounds, no guarding, no rebound, no hepatosplenomegaly, no masses. EXTREMITIES: 2+ pulses, warm, well-perfused, no edema. Dressing clean and dry, 30 mL serous output NEUROLOGICAL: Cranial nerves II through XII grossly intact. Normal speech, gait not observed. PSYCH: Normal mood, normal affect. SKIN: Warm, dry, normal turgor, no rashes or lesions noted. Laboratory Results - last 24 hr 08/11/18 08/11/18 08:17 08:17 WBC 10.8 RBC 4.41 Hgb 13.1 Hct 40.0 MCV 90.8 MCH 29.7 MCHC 32.7 RDW 13.3 Plt Count 179 MPV 8.1 Sodium 135 L Potassium 4.0 Chloride 101 Carbon Dioxide 27 Anion Gap 7 L BUN 22 H Creatinine 0.8 Creat Clearance w eGFR > 60 Random Glucose 95 D Calcium 8.8 Active Medications Generic Name Dose Route Start Last Admin Trade Name Freq PRN Reason Stop Dose Admin Acetaminophen 650 mg 08/10/18 17:15 08/11/18 11:18 Tylenol - PO 08/13/18 17:14 Not Given Q6H MADHAVI Al Hydroxide/Mg Hydroxide 30 ml 08/10/18 21:13 Mylanta Oral Suspension - PO Q4H PRN DYSPEPSIA Aspirin 81 mg 08/10/18 23:00 08/11/18 09:19 Ecotrin - PO 81 mg BID MADHAVI Administration Atorvastatin Calcium 10 mg 08/10/18 22:00 08/10/18 23:00 Lipitor - PO 10 mg HS MADHAVI Administration Calcium Carbonate/Cholecalciferol 2 tab 08/10/18 22:00 08/11/18 09:19 Os-[place] 500+D - PO 2 tab BID MADHAVI Administration Clonazepam 0.5 mg 08/11/18 10:00 08/11/18 09:58 Klonopin - PO 0.5 mg QID MADHAVI Administration Cyclobenzaprine HCl 10 mg 08/10/18 22:00 08/10/18 23:58 Flexeril - PO Not Given HS MADHAVI Docusate Sodium 300 mg 08/10/18 22:00 08/10/18 23:58 Colace - PO Not Given HS MADHAVI Gabapentin 300 mg 08/10/18 22:00 08/11/18 09:19 Neurontin - PO 300 mg BID MADHAVI Administration Clindamycin Phosphate 900 mg in 50 mls @ 100 mls/hr 08/11/18 01:00 08/11/18 06:03 Cleocin 900 Mg Premix Ivpb - IVPB 08/11/18 13:29 100 mls/hr Q6H MADHAVI Administration Protocol Magnesium Hydroxide 30 ml 08/10/18 21:13 Milk Of Magnesia - PO PRN PRN CONSTIPATION Metoprolol Succinate 25 mg 08/10/18 22:00 08/10/18 23:58 Toprol Xl - PO Not Given HS MADHAVI Non-Formulary Medication 145 mcg 08/11/18 22:00 Linaclotide [Linzess] PO HS MADHAVI Non-Formulary Medication 180 each 08/11/18 10:00 Patient's Own Med PO DAILY MADHAVI Mometasone Furoate 0 each 08/11/18 10:00 08/11/18 09:58 50mcg Nasal [place](Pt NS 1 each 's Own Med-Non DAILY MADHAVI Administration Formulary) Ondansetron HCl 4 mg 08/10/18 21:13 Zofran Injection IVPUSH Q6H PRN NAUSEA Oxycodone HCl 5 mg 08/10/18 17:05 Roxicodone - PO Q3H PRN PAIN LEVEL 1-5 Oxycodone HCl 10 mg 08/10/18 17:05 Roxicodone - PO Q3H PRN PAIN LEVEL 6-10 Oxycodone HCl 10 mg 08/10/18 22:00 08/11/18 09:20 Oxycontin - PO 08/13/18 17:05 Not Given BID MADHAVI Pantoprazole Sodium 40 mg 08/11/18 10:00 08/11/18 09:19 Protonix - PO 40 mg DAILY MADHAVI Administration Quetiapine Fumarate 200 mg 08/11/18 10:00 08/11/18 09:23 Seroquel - PO Not Given DAILY MADHAVI Senna/Docusate Sodium 2 tablet 08/10/18 22:00 08/11/18 09:19 Pericolace - PO 2 tablet BID MADHAVI Administration Sertraline HCl 100 mg 08/11/18 12:00 Zoloft - PO DAILY MADHAVI Trazodone HCl 350 mg 08/11/18 22:00 Desyrel - PO HS MADHAVI ASSESSMENT/PLAN: 57-year-old male with HTN, HLD, depression, anxiety, sleep apnea, ROLAND, s/p gastric (09/09/2017), s/p right TKR 05/18/2018. POD #1 s/p left TKR. POD #1: -Continue pain management with oxycodone 10mg bid with 5-10mg prn breakthrough pain, gabapentin, cyclobenzaprine -Remove drain when output <30 cc/hrs -IS -PT, WBAT -Monitor H/H (anemia s/p gastric sleeve, declining iron supplementation as is constipated) - WBAT LLE - Clindamycin 900 mg IV q8h x 3 doses - Post-op TOV - monitor hgb, continue iron supplements, since patient is post bariatric surgery. HTN: -Continue metoprolol HLD -Continue atorvastatin Anxiety/depression: -Continue Seroquel, klonopin, trazodone Constipation: -Continue colace/senna -Add Miralax Ppx: ASA 81 mg BID x 6 weeks post op, SCDs, TEDs, oob DISPO: Anticipate dc to rehab 08/12. We will continue to follow the patient. Thank you for this consultative opportunity.
[2018-08-11] MEDS: SERTRALINE HCL 50 MG TABLET (FP) PO SCH (12:34)
[2018-08-11] MEDS: POLYETHYLENE GLYCOL 3350 119 GM BTL PO SCH ×2 (13:55→22:29)
--- NOTE | 2018-08-11 15:08 | PN ---
Progress Note (short form) - Note Progress Note: POD#1 PT seen earlier this am. He has no complaints of pain. No CP/SOB. Voiding without difficulty. Vital Signs Period Temp Pulse Resp BP Sys/Stout Pulse Ox Last 24 Hr 97.8 F-99.4 F 78-104 16-20 90-128/51-86 94-100 MACARIO-30 ml bloody Bautista: 500ml GEN: A&0x3 CV: RRR Lungs: CTA b/l Soft, non-distended, non-tender LLE: Dressing in place and dry. Dorsi/plantar flexion 5/5. +2 DP pulse CBC, BMP 08/11/ 08:17 08/11/ 08:17 A/P: 57 yo male s/p L TKR, POD#1 Continue diet as tolerated OOB with PT DVT ppx with Aspirin 81mg BID Resume home medications Oral pain medications Continue MACARIO, if outpt remain low will remove the drain in the morning/ afternoon before discharge Dw Dr. Robles
[2018-08-11] MEDS ORDERED: traZODone HCL 50 MG TABLET (FP) ONE (21:19)
[2018-08-11] MEDS ORDERED: traZODone HCL 100 MG TABLET (FP) PO SCH (22:00)
[2018-08-11] MEDS ORDERED: PATIENT'S OWN MEDICATION (NON-FORMULARY) (Linaclotide [Linzess] 145 MCG) PO SCH (22:00)
[2018-08-11] MEDS: DOCUSATE SODIUM 100 MG CAPSULE (FP) PO SCH (22:21)
[2018-08-11] MEDS: CYCLOBENZAPRINE HCL 10 MG TABLET (FP) PO SCH (22:23)
[2018-08-11] MEDS: ATORVASTATIN CA 10 MG TABLET (FP) PO SCH (22:24)
[2018-08-11] MEDS: metoPROLOL SUCCINATE 25 MG TAB.SR.24H (FP) PO SCH (22:25)
[2018-08-12 06:36] VITALS: BP 106/65; PULSE 93; TEMP 99.9
[2018-08-12] MEDS: ACETAMINOPHEN 325 MG TABLET (FP) PO SCH (06:47)
[2018-08-12 08:31] LABS: HEMATOCRIT 36.5 % (35.4-49); HEMOGLOBIN 12.1 GM/dl (11.7-16.9); MCH 30.3 pg (25.7-33.7); MCHC 33.2 g/dl (32.0-35.9); MEAN CELL VOLUME 91.1 fl (80-96); MEAN PLT VOLUME 8.9 fl (7.5-11.1); PLATELET COUNT 144 K/MM3 (134-434); RDW 13.5 % (11.9-15.9); WHITE BLOOD COUNT 6.7 K/mm3 (4.0-10.8)
--- NOTE | 2018-08-12 08:47 | DS ---
"Physical Exam: SUBJECTIVE: Patient seen and examined He had 2 episodes of buckling yesterday with ambulation. Otherwise no complaints of pain. Pt states that he had 105 degrees of flexion with PT yesterday. OBJECTIVE: Vital Signs Period Temp Pulse Resp BP Sys/Stout Pulse Ox Last 24 Hr 98.4 F-99.9 F 93-104 18-18 96-110/58-65 93-97 PHYSICAL EXAM GENERAL: The patient is awake, alert, and fully oriented, in no acute distress. LUNGS: Breath sounds equal, clear to auscultation bilaterally, no wheezes, no crackles, no accessory muscle use. HEART: Regular rate and rhythm, S1, S2 without murmur, rub or gallop. ABDOMEN: Soft, nontender, nondistended, normoactive bowel sounds. EXTREMITIES: 2+ pulses, warm, well-perfused, no edema below the knee. Left knee drain pulled without difficulty and tip intact. Placed pressure dressing, and quin wrap. Small amount of swelling noted to the knee/soft without firm masses. Operative dressing intact. PSYCH: Normal mood, normal affect. LABS Laboratory Results - last 24 hr 08/11/18 08:17 Sodium 135 L Potassium 4.0 Chloride 101 Carbon Dioxide 27 Anion Gap 7 L BUN 22 H Creatinine 0.8 Creat Clearance w eGFR > 60 Random Glucose 95 D Calcium 8.8 Date of Admission:08/10/18 Date of Discharge: 08/12/18 Hospital Course: The patient was admitted to the Med-Surg Unit after an elective repair of their Left knee DJD. Now, s/p Left total knee replacement. An xray was obtained in the OR and confirmed hardware placement in good position with no fractures or dislocations. The patient ambulated the hallways with assistance and with Physical Therapy. Narcotic and non-narcotic pain management control was achieved with an oral and IV approach. POD #2, the surgical drain was removed fully intact and without incident. Liz-operative IV ABX were administered. DVT prophylaxis was achieved with SCDs, early ambulation and aspirin 81 mg oral two times a day. The patient was cleared for discharge to a rehab facility. The discharge instructions and an oral pain management plan were reviewed with the patient. All questions answered. Above plan discussed with Dr. Robles and agreed. Minutes to complete discharge: 30 Discharge Summary Reason For Visit: OSTEOARTHRITIS LEFT KNEE Condition: Stable - Instructions Diet, Activity, Other Instructions: Dr. Robles Discharge Instructions for Knee Replacement Post Operative Instructions Physical activity Physical Therapist will come to your home for the first 5 days. You will be set up with outpatient PT at your first post-operative visit. Use assistive devices for ambulation at all times. Weight bearing as tolerated on your surgical side. Do not put pillow under knee. May put pillow under heel. Wound care Leave your surgical dressing in place. Do not change the dressing until seen by your surgeon in the office. No baths or showers. Do not submerge your incision. Do not apply any ointments or lotions to your incision. Please call the office if your dressing is soiled/dirty or is falling off. Apply Graduated Compression Stockings (TEDS) to both lower extremities - remove daily for hygiene ONLY. Diet There are no dietary restrictions. Eat healthy, high-fiber foods. Drink 6 to 8 glasses of liquid each day. This will assist in keeping your bowels are regular. Pain management Any pain prescription medication ordered should be taken as prescribed for moderate to severe pain. Do not take additional Tylenol while taking Percocet. Take Aspirin 81 mg two times a day for a total of 6 weeks to prevent blood clots. Call Dr. Robles for any of the following: Severe pain not relieved by medication Fever of 101 or higher Excessive bleeding or drainage on dressing Inability to urinate If you experience chest pain or shortness of breath, please seek emergency care immediately. Please call the office at to confirm your post-op appointment for the week following surgery. This report was requested by: Sammie Miranda | Reference #: [id number] 07/26/2018 07/29/2018 clonazepam 0.5 mg tablet 360 90 Prateek Geller) 07/05/2018 07/09/2018 oxycodone-acetaminophen 10-325 mg tab 120 30 Akhil Robles MS, MD Disposition: [facility] - Home Medications Comprehensive Discharge Medication List: Ambulatory Orders Atorvastatin Ca [Lipitor] 10 mg PO HS 09/07/17 Clonazepam 0.5 mg PO QID 09/07/17 Mometasone Furoate 34 gm NS DAILY 09/07/17 Sertraline HCl [Zoloft] 200 mg PO DAILY 09/07/17 Cholecalciferol (Vitamin D3) [Vitamin D3] 5,000 unit PO DAILY 09/09/17 Fexofenadine HCl [Wendy Allergy] 60 mg PO DAILY 09/09/17 Metoprolol Succinate 25 mg PO HS 09/09/17 Calcium Carbonate/Vitamin D3 [Calcium 600 + Vit D Tablet] 2 each PO BID Linaclotide [Linzess] 145 mcg PO HS 02/02/18 Meloxicam [Mobic] 15 mg PO DAILY 02/02/18 Clonazepam 0.5 mg PO DAILY PRN 04/28/18 Cyclobenzaprine HCl [Flexeril 10 mg] 10 mg PO HS 04/28/18 Ginkgo Biloba 120 mg PO BID 04/28/18 [id number]-[id number] 149-Hyal [Glucosamine-Chondr Complex Tab] 2 each PO DAILY 04/28/18 Multivitamins [Multivit ([facility] Formulary)] 1 tab PO DAILY tab 05/20/18 Acetaminophen [Tylenol .Regular Strength -] 650 mg PO HS 07/25/18 Ascorbic Acid [Vitamin C -] 500 mg PO DAILY 07/25/18 Aspirin [ASA -] 81 mg PO DAILY 07/25/18 Cyanocobalamin (Vitamin B-12) [Nascobal] 1 each NS WEEKLY 07/25/18 Dextrin [Fiber] 350 gm PO DAILY PRN 07/25/18 Docusate Sodium [Colace -] 300 mg PO HS 07/25/18 Glucosa Thompson 2Kcl/Chondroitin Thompson [Glucosamine & Chondroitin Cap] 1 each PO DAILY 07/25/18 Iron,Carbonyl/Ascorbic Acid [Iron 100-Vitamin C Tablet] 1 each PO DAILY Magnesium Hydrox 2400MG/30Ml [Milk of Magnesia -] 30 ml PO DAILY PRN 07/25/18 Magnesium Oxide [Magnesium] 500 mg PO DAILY 07/25/18 Om3/Dha/Epa/Cod Liver Oil/A/D3 [Cod Liver Oil Softgel] 3 each PO HS 07/25/18 Omeprazole 20 mg PO DAILY 07/25/18 Oxycodone HCl/Acetaminophen [Percocet 10-325 mg Tablet] 2 each PO TID 07/25/18 Sennosides [Senokot] 3 tab PO HS 07/25/18 Sennosides [Senokot] 8.6 mg PO DAILY 07/25/18 traZODone HCL [Trazodone HCl] 350 mg PO HS 07/25/18 This patient is new to me today: No Emergency Visit: No Critical Care patient: No - Discharge Referral Referred to [facility] Med [facility] No"
[2018-08-12] MEDS: GABAPENTIN 300 MG CAPSULE (FP) PO SCH (09:09)
[2018-08-12] MEDS: ASPIRIN COATED 81 MG TABLET.EC PO SCH (09:09)
[2018-08-12] MEDS: CALCIUM 500MG/VIT-D 200 UNITS COMBO TABLET (FP) PO SCH (09:09)
[2018-08-12] MEDS: PANTOPRAZOLE 40 MG TABLET (FP) PO SCH (09:09)
[2018-08-12] MEDS: clonazePAM 0.5 MG TABLET PO SCH (09:09)
[2018-08-12] MEDS: SENNOSIDES/DOCUSATE COMBO (SENNA PLUS) TABLET (UD) PO SCH (09:10)
[2018-08-12] MEDS: SERTRALINE HCL 50 MG TABLET (FP) PO SCH (09:10)
[2018-08-12] MEDS: POLYETHYLENE GLYCOL 3350 119 GM BTL PO SCH (09:13)
[2018-08-12] MEDS: oxyCODONE HCL 10 MG SUSTAINED ACTING TABLET PO SCH (09:13)
[2018-08-12] MEDS: QUEtiapine FUMARATE 200 MG TABLET PO SCH (09:13)
[2018-08-12] MEDS ORDERED: PT OWN MED DRAWER 7, Y5N ONE (09:15)
[2018-08-12] MEDS: MOMETASONE FUROATE 50 MCG NS SCH (09:18)
--- NOTE | 2018-08-17 13:42 | PATH ---
Surgical Pathology Report Patient Name: ISAIAH ABREU Med. Rec. #: [id number] /Age/Gender: 1960 (Age: 57) / M Account: [id number] Location: [facility] MED-SURG Taken: 08/10/2018 Received: 08/10/2018 Reported: 08/17/2018 Physicians: Feliz Robles M.D. Specimen(s) Received LEFT KNEE BONES Clinical History Left knee osteoarthritis Final Diagnosis KNEE BONES, LEFT, TOTAL KNEE REPLACEMENT: DEGENERATIVE JOINT DISEASE. Electronically Signed Lola Camp M.D. Gross Description Received in formalin labeled "left knee bones," is a 13.0 x 12.5 x 2.0 cm aggregate of multiple portions of bone and soft tissue. The tibial plateau measures 8.7 x 5.5 x 1.7 cm. There is a 2.7 cm in greatest dimension area of eburnation present. The remaining articular surfaces are johansen-yellow and focally granular. The underlying trabecular bone is yellow and hard. [employer] sections are submitted in one cassette, following decalcification. 08/12/2018 [facility]08/12/2018
== END 2018-08-12 11:25 | DRG 470 ==
LOC: FM/S 12:04
PROVIDERS: ADMIT Orthopaedic Surgery Adult Reconstructive Orthopaedic Surgery; ATTEND Orthopaedic Surgery Adult Reconstructive Orthopaedic Surgery
PROC: 0SRD0JZ Replacement of Left Knee Joint with Synthetic Substitute, Open Approach (ICD-10-PCS; principal; 2018-08-10 14:00)
DX: M17.12 Unilateral primary osteoarthritis, left knee (principal); M21.062 Valgus deformity, not elsewhere classified, left knee; I10 Essential (primary) hypertension; E78.5 Hyperlipidemia, unspecified; F32.9 Major depressive disorder, single episode, unspecified; F41.9 Anxiety disorder, unspecified; Z98.84 Bariatric surgery status; M62.838 Other muscle spasm; G47.33 Obstructive sleep apnea (adult) (pediatric); K59.00 Constipation, unspecified
CPT/HCPCS: 36415; 73560-TC-LT-FY; 80048; 85027; 88304-TC; 88311-TC; 94760; 97116-GP; 97162-GP

== ENCOUNTER → 2023-07-07 | Day surgery (SDC) | payer BC ==
[2023-07-06 08:34] VITALS: BMI 27.3
[2023-07-07 09:54] VITALS: TEMP 97.8
[2023-07-07 10:36] VITALS: BP 116/68; PULSE 95; RESP 16
== END | disposition home or self-care (01) ==
LOC: JASU-ENDO 05:00
PROVIDERS: ATTEND Internal Medicine Gastroenterology
PROC: 0DJD8ZZ Inspection of Lower Intestinal Tract, Via Natural or Artificial Opening Endoscopic (ICD-10-PCS; principal; 2023-07-07 09:00)
DX: Z12.11 Encounter for screening for malignant neoplasm of colon (principal); K64.8 Other hemorrhoids; K57.30 Diverticulosis of large intestine without perforation or abscess without bleeding; Z86.010 Personal history of colon polyps; Z83.719 Family history of colon polyps, unspecified

== ENCOUNTER 2024-05-21 20:32 | Inpatient (IN) | payer BC ==
[2024-05-21] MEDS ORDERED: KETOROLAC TROMETHAMINE 30 MG/1 ML VIAL ONE (22:08)
[2024-05-21 22:12] LABS: BASO % 0.9 % (0-2.0); HEMATOCRIT 42.1 % (35.4-49); HEMOGLOBIN 13.9 GM/dL (11.7-16.9); LYMPH % 24.8 % (8-40); MCHC 32.9 g/dl (32.0-35.9); MEAN CELL VOLUME 85.1 fl (80-96); MEAN PLT VOLUME 7.4 fl (7.5-11.1); NEUT % 63.3 % (42.8-82.8); PLATELET COUNT 225 10^3/uL (134-434); RBC 4.95 M/mm3 (4.00-5.60); RDW 16.7 % (11.9-15.9)
[2024-05-21] MEDS: KETOROLAC TROMETHAMINE 30 MG/1 ML VIAL IVPUSH ONE (22:18)
[2024-05-21 22:19] LABS: INR 0.96 (0.83-1.09); PROTHROMBIN TIME (PATIENT) 11.1 SEC (9.7-13.0)
[2024-05-21 22:22] LABS: ACTIVATED PTT 37.7 SECONDS (25.2-36.5)
[2024-05-21 22:29] LABS: POTASSIUM 4.1 mmol/L (3.5-5.1)
[2024-05-21 22:31] LABS: ALBUMIN 3.9 g/dl (3.4-5.0); BLOOD UREA NITROGEN 23.2 mg/dL (7-18); CALCIUM 9.1 mg/dL (8.5-10.1)
[2024-05-21 22:34] LABS: CREATININE 0.7 mg/dL (0.55-1.3)
[2024-05-21 22:36] LABS: BILIRUBIN,TOTAL 0.5 mg/dL (0.2-1); TOT PROT 7.6 g/dl (6.4-8.2)
[2024-05-21] MEDS ORDERED: MORPHINE SULFATE 2 MG/ML SYRINGE ONE (23:21)
[2024-05-21] MEDS: morphine CARPU-JECT 2 MG/1 ML DISP.SYRIN IVPUSH ONE (23:31)
[2024-05-22] MEDS ORDERED: ACETAMINOPHEN 325 MG TABLET (FP) PO PRN (04:09)
[2024-05-22 06:32] VITALS: BMI 32.1
[2024-05-22] MEDS: POLYETHYLENE GLYCOL (HEALTHYLAX) 3350 17 GM PACKET PO SCH (07:05)
[2024-05-22] MEDS: FINASTERIDE 5 MG TABLET (FP) PO SCH (09:46)
[2024-05-22] MEDS ORDERED: PATIENT'S OWN MEDICATION (NON-FORMULARY) (Carbidopa/Levodopa [Rytary Er 61.25 Mg-245 Mg Ca PO SCH (10:00)
[2024-05-22] MEDS: DULoxetine HCL 30 MG CAPSULE.DR PO SCH (10:22)
[2024-05-22] MEDS: LIDOCAINE 4% PATCH TP SCH (10:23)
[2024-05-22] MEDS: PRAMIPEXOLE DIHYDROCHLORIDE 1.5 MG TABLET PO SCH (10:24)
[2024-05-22] MEDS: ENOXAPARIN NA (PORCINE) 40 MG/0.4 ML DISP.SYRIN SQ SCH (10:24)
[2024-05-22 10:34] LABS: BASO % 0.9 % (0-2.0); EOS % 1.6 % (0-4.5); HEMATOCRIT 40.9 % (35.4-49); HEMOGLOBIN 13.4 GM/dL (11.7-16.9); LYMPH % 23.7 % (8-40); MCHC 32.7 g/dl (32.0-35.9); MEAN CELL VOLUME 85.4 fl (80-96); MEAN PLT VOLUME 7.8 fl (7.5-11.1); NEUT % 66.8 % (42.8-82.8); PLATELET COUNT 213 10^3/uL (134-434); RBC 4.79 M/mm3 (4.00-5.60); RDW 16.8 % (11.9-15.9); WHITE BLOOD COUNT 5.9 K/mm3 (4.0-10.0)
[2024-05-22 10:45] LABS: POTASSIUM 3.9 mmol/L (3.5-5.1)
[2024-05-22 10:53] LABS: ALBUMIN 3.9 g/dl (3.4-5.0); CALCIUM 9.2 mg/dL (8.5-10.1)
[2024-05-22 10:54] LABS: BLOOD UREA NITROGEN 22.6 mg/dL (7-18); MAGNESIUM 2.4 mg/dL (1.8-2.4)
[2024-05-22 10:57] LABS: CREATININE 0.7 mg/dL (0.55-1.3); PHOSPHOROUS 3.5 mg/dL (2.5-4.9)
[2024-05-22 10:58] LABS: BILIRUBIN,TOTAL 0.6 mg/dL (0.2-1)
[2024-05-22 11:00] LABS: TOT PROT 7.3 g/dl (6.4-8.2)
[2024-05-22] MEDS: INSULIN ASPART SLIDING SCALE (NOVOLOG) 1 VIAL SQ SCH ×2 (14:51→16:39)
[2024-05-22] MEDS: clonazePAM 0.5 MG TABLET PO SCH (15:06)
[2024-05-22 17:34] LABS: PH,URINE 6.5 (5.0-8.0); URINE APPEARANCE CLEAR; URINE BILIRUBIN NEGATIVE (NEGATIVE); URINE COLOR YELLOW; URINE GLUCOSE (UA) NEGATIVE (NEGATIVE); URINE KETONE NEGATIVE (NEGATIVE); URINE LEUK ESTERASE NEGATIVE (NEGATIVE); URINE NITRITE NEGATIVE (NEGATIVE); URINE PROTEIN NEGATIVE (NEGATIVE)
[2024-05-22] MEDS ORDERED: ALBUTEROL SO4 HFA INHALER IH PRN (18:19)
[2024-05-22] MEDS ORDERED: PROMETHAZINE HCL ORAL SYRUP 6.25 MG/5 ML (BULK BOTTLE) PO PRN (19:13)
[2024-05-22] MEDS: metoPROLOL SUCCINATE 25 MG TAB.SR.24H (FP) PO SCH (21:16)
[2024-05-22] MEDS: ATORVASTATIN CA 10 MG TABLET (FP) PO SCH (21:17)
[2024-05-22] MEDS: traZODone HCL 100 MG TABLET (FP) PO SCH (21:18)
[2024-05-22] MEDS: FLUTICASONE PROP 0.05% 16 GM NASAL SPRAY NS SCH (21:19)
[2024-05-22] MEDS: LIDOCAINE PATCH REMOVAL MC SCH (21:32)
[2024-05-23 09:07] LABS: POTASSIUM 4.2 mmol/L (3.5-5.1)
[2024-05-23 09:12] LABS: ALBUMIN 3.9 g/dl (3.4-5.0); CALCIUM 9.2 mg/dL (8.5-10.1)
[2024-05-23 09:13] LABS: BLOOD UREA NITROGEN 17.7 mg/dL (7-18)
[2024-05-23 09:15] LABS: CREATININE 0.7 mg/dL (0.55-1.3)
[2024-05-23 09:17] LABS: BILIRUBIN,TOTAL 0.6 mg/dL (0.2-1); TOT PROT 7.6 g/dl (6.4-8.2)
[2024-05-23 09:24] LABS: BASO % 1.1 % (0-2.0); EOS % 1.9 % (0-4.5); HEMATOCRIT 44.7 % (35.4-49); HEMOGLOBIN 14.5 GM/dL (11.7-16.9); LYMPH % 24.4 % (8-40); MCH 27.7 pg (25.7-33.7); MCHC 32.3 g/dl (32.0-35.9); MEAN CELL VOLUME 85.8 fl (80-96); MEAN PLT VOLUME 7.5 fl (7.5-11.1); MONO % 6.4 % (3.8-10.2); NEUT % 66.2 % (42.8-82.8); PLATELET COUNT 199 10^3/uL (134-434); RBC 5.21 M/mm3 (4.00-5.60); RDW 16.6 % (11.9-15.9); WHITE BLOOD COUNT 6.2 K/mm3 (4.0-10.0)
[2024-05-23] MEDS ORDERED: guaiFENesin 200 MG/10 ML 10 ML UNIT-DOSE CUPS PO PRN (11:52)
[2024-05-23] MEDS ORDERED: BENZOCAINE/MENTH/CETYLPYRD CL 1 EACH LOZENGE MM PRN (11:52)
[2024-05-23] MEDS: MINERAL OIL ENEMA 133 ML ENEMA RC ONE (12:19)
[2024-05-23] MEDS: SODIUM PHOSPHATE/NA BIPHOS 133 ML ENEMA RC ONE (13:19)
[2024-05-23] MEDS: oxyCODONE HCL 5 MG TABLET PO SCH (14:33)
[2024-05-23] MEDS: ACETAMINOPHEN 325 MG TABLET (FP) PO SCH (14:34)
[2024-05-23] MEDS: CELECOXIB 200 MG CAPSULE PO SCH (21:28)
[2024-05-23] MEDS: ASPIRIN COATED 81 MG TABLET.EC PO SCH (21:30)
[2024-05-23] MEDS: CYCLOBENZAPRINE HCL 10 MG TABLET (FP) PO SCH (21:30)
[2024-05-23] MEDS ORDERED: CELECOXIB 100 MG CAPSULE PO SCH (22:00)
[2024-05-25 08:43] LABS: BASO % 1.2 % (0-2.0); HEMATOCRIT 40.9 % (35.4-49); HEMOGLOBIN 13.5 GM/dL (11.7-16.9); MCH 28.1 pg (25.7-33.7); MCHC 32.9 g/dl (32.0-35.9); MEAN CELL VOLUME 85.4 fl (80-96); MEAN PLT VOLUME 7.6 fl (7.5-11.1); MONO % 12.2 % (3.8-10.2); NEUT % 56.6 % (42.8-82.8); PLATELET COUNT 182 10^3/uL (134-434); RDW 17.1 % (11.9-15.9); WHITE BLOOD COUNT 5.8 K/mm3 (4.0-10.0)
[2024-05-25 08:57] LABS: POTASSIUM 4.6 mmol/L (3.5-5.1)
[2024-05-25 09:01] LABS: ALBUMIN 3.5 g/dl (3.4-5.0); CALCIUM 8.8 mg/dL (8.5-10.1)
[2024-05-25 09:02] LABS: BLOOD UREA NITROGEN 29.7 mg/dL (7-18); MAGNESIUM 2.4 mg/dL (1.8-2.4)
[2024-05-25 09:05] LABS: CREATININE 0.9 mg/dL (0.55-1.3)
[2024-05-25 09:07] LABS: BILIRUBIN,TOTAL 0.5 mg/dL (0.2-1); TOT PROT 6.8 g/dl (6.4-8.2)
[2024-05-25] MEDS: CHOLECALCIFEROL (VIT D3) 5000 UNITS (125 MCG) CAP PO SCH (12:04)
[2024-05-25] MEDS: LORATADINE 10 MG TABLET PO SCH (12:50)
[2024-05-25] MEDS: OMEGA-3 ACID ETHYL ESTERS (FATTY-ACIDS) 1 GM CAPSULE (FP) PO SCH (13:44)
[2024-05-25] MEDS: [UNRECOGNIZED DRUG - OTHER] PO SCH (14:41)
[2024-05-25] MEDS: VIBEGRON 75 MG PO SCH (21:22)
[2024-05-25] MEDS: [UNRECOGNIZED DRUG - OTHER] PO SCH (21:22)
[2024-05-25] MEDS: LINACLOTIDE 290 MCG PO SCH (21:23)
[2024-05-25] MEDS: [UNRECOGNIZED DRUG - OTHER] PO SCH (21:23)
[2024-05-25] MEDS ORDERED: CYCLOBENZAPRINE HCL 5 MG TABLET PO SCH (22:00)
[2024-05-26] MEDS: CYCLOBENZAPRINE HCL 5 MG TABLET PO SCH (06:26)
[2024-05-26 14:42] VITALS: BP 106/74; PULSE 87; RESP 18; TEMP 98.4
== END 2024-05-26 18:30 | disposition home or self-care (01) | DRG 57 ==
LOC: JER 20:32 → JERBED 05-22 02:51 → J8W 05-22 05:40 → J6S 05-22 17:24 → OBSVTOIN 05-25 10:21
PROVIDERS: ADMIT Internal Medicine; ATTEND Internal Medicine
DX: G20.A1 Parkinson's disease without dyskinesia, without mention of fluctuations (principal); G95.89 Other specified diseases of spinal cord; M41.80 Other forms of scoliosis, site unspecified; E78.5 Hyperlipidemia, unspecified; N40.0 Benign prostatic hyperplasia without lower urinary tract symptoms; F41.8 Other specified anxiety disorders; K59.00 Constipation, unspecified; N32.81 Overactive bladder; K58.9 Irritable bowel syndrome, unspecified; I49.9 Cardiac arrhythmia, unspecified; Z96.653 Presence of artificial knee joint, bilateral; K21.9 Gastro-esophageal reflux disease without esophagitis; I25.10 Atherosclerotic heart disease of native coronary artery without angina pectoris; R05.9 Cough, unspecified; R26.2 Difficulty in walking, not elsewhere classified; E66.9 Obesity, unspecified; Z68.32 Body mass index [BMI] 32.0-32.9, adult; G47.09 Other insomnia; M41.85 Other forms of scoliosis, thoracolumbar region
CPT/HCPCS: 36415; 71045-TC-FY; 72082-TC-FY; 72131-TC; 72148-TC; 80053; 81003; 82962; 83735; 84100; 84443; 84484; 85025; 85610; 85730; 86803; 86850; 86900; 86901; 87635; 93005; 93010; 97116-GP; 97161-GP; 99285-25; G0378